=== PATIENT | female | born 1955 | race Caucasian/White ===

== ENCOUNTER → 2019-06-17 | Day surgery (SDC) | payer OTHER ==
[2019-06-13 13:08] LABS: BASOPHILS # (AUTO) 0.1 (0.0-0.1); BASOPHILS % 0.4 % (0.0-1.0); EOSINOPHILS # (AUTO) 0.8 (0.0-0.4); EOSINOPHILS % 6.1 % (0.0-6.0); HEMATOCRIT 40.1 % (34.2-44.1); HEMOGLOBIN 12.5 g/dL (12.0-16.0); LYMPHOCYTES # (AUTO) 2.7 (1.0-3.2); LYMPHOCYTES % 22.3 % (18.0-39.1); MEAN CORPUSCULAR HGB CONC 31.2 g/dL (31-35); MEAN CORPUSCULAR VOLUME 83.5 fL (81-99); MONOCYTES # (AUTO) 0.5 (0.2-0.8); MONOCYTES % 4.2 % (4.4-11.3); NEUTROPHILS # (AUTO) 8.1 (2.1-6.9); NEUTROPHILS % 66.6 % (38.7-80.0); PLATELET COUNT 437 x10e3/uL (140-360); RED CELL DISTRIBUTION WIDTH 14.6 % (11.7-14.4)
[2019-06-13 13:19] LABS: INR 0.92; PROTHROMBIN TIME 12.9 seconds (11.9-14.5)
[2019-06-13 13:26] LABS: ALBUMIN 3.7 g/dL (3.5-5.0); ALBUMIN/GLOBULIN RATIO 0.9 (0.8-2.0); ANION GAP 16.2 mmol/L (8-16); CALCIUM 10.5 mg/dL (8.4-10.2); CREATININE, SERUM 1.25 mg/dL (0.57-1.11); POTASSIUM 4.2 mmol/L (3.5-5.1)
[~2019-06-17] VITALS: Ht 167.6 cm; Wt 94.3 kg
[~2019-06-17] MED LIST: ADVAIR 250-501 EACH INH; ALPRAZOLAM 0.5 MG TAB ONE; AMIODARONE HCL200 MG PO; CARDURA1 MG PO; CARVEDILOL3.125 MG PO; CEFTIN500 MG PO; DIPHENHYDRAMINE HCL 25 MG CAP ONE; DUONEB 0.5 MG-33 ML INH; FENOFIBRATE160 MG PO; FENTANYL CITRATE/PF 100MCG/2 ML INJ ONE; GABAPENTIN300 MG PO; GEMFIBROZIL600 MG PO; GLIMEPIRIDE2 MG PO; HEPARIN SOD/SOD CHLORIDE 2,000 ML ONE; HUMALOG100 UNITS/ SC; HYDRALAZINE HCL25 MG PO; HYDROCHLOROTHIA25 MG PO; JANUVIA100 MG PO; LANTUS100 UNITS/ SC; LEVAQUIN500 MG PO; LIDOCAINE HCL 2% LOCAL 20 ML VIAL ONE; LISINOPRIL10 MG PO; LOSARTAN POTASS25 MG PO; METFORMIN HCL500 MG PO; MICROBID PO; MIDAZOLAM HCL 2 MG/2 ML VIAL ONE; MUCINEX600 MG PO; NICOTINE PATCH1 EAC4 EXT; NORCO 10-325 T1 EACH PO; NORVASC10 MG PO; PREDNISONE10 MG PO; PREDNISONE5 G1 PO; PROAIR HFA INH8.5 GM INH; SIMVASTATIN20 MG PO; SODIUM CHLORIDE 0.9% 1000ML 1,000 ML ONE; SOMA350 MG PO; SYMBICORT 80-10.2 GM INH; TESSALON PERLE100 MG PO; TRADJENTA5 MG PO; VERAPAMIL HCL 2.5 MG/ML 2 ML VIAL ONE; ZOFRAN ODT4 MG SL
--- OUTSIDE RECORDS SUMMARY | 2019-06-17 11:04 | XMS REPORT ---
Author Author [facility] Address Unknown Phone Unavailable Care Team Providers Care Hand Glove Cleaner Name Role Phone Unavailable Unavailable Payers Payer Name Policy Type Policy Number Effective Date Expiration Date Problems This patient has no known problems. Allergies, Adverse Reactions, Alerts Allergy Name Allergy Type Status Severity Reaction(s) Onset Date Inactive Date Treating Clinician Comments No Known Allergies DA Active U 2016-12-22 00:00:00 Medications This patient has no known medications. Results Test Description Test Time Test Comments Text Results Atomic Results Result Comments - XR L-SPINE 2/3 VIEWS 2019-05-28 13:25:00 Name: BETO LEMA [facility] : 1955 Age/S:64 /F [address] [facility] Unit#:[id number] Loc: [place] [address] Phys: Deni Ruelas MD Dis Date: PHONE #: [phone] Status: REG ER FAX #: [phone] Exam Date: 05/28/2019 Reason: low back pain EXAMS: CPT CODE: [id number] XR L-SPINE 2/3 VIEWS 00094 HISTORY: Low back pain. COMPARISON: X-ray from May 17, 2017. Lumbar spine series, 3 views: No acute fracture or dislocation. Vertebral body heights are maintained. Marked loss of disc space at L2-L3 level. Anterior marginal osteophytes throughout the lumbar spine. SI joints are preserved. Facet arthropathy at L4-L5 and L5-S1 level. Endplate sclerosis at L2-L3 level. Postop changes in the left epigastric location. IMPRESSION: No acute fracture or dislocation. Vertebral body heights are maintained. at 2927 Reported and signed by: Pablo Herrera M.D. CC: Deni Ruelas MD; Dr. Cooper Chandler [facility] nologist: Cristiana Diaz [facility] Trnutrpt Data: 05/28/2019 (7779) [email or web address] Orig Print D/T: S: 05/28/2019 (2910) PAGE 1 Signed Report GASTRIC,BIOPSY 2018-05-08 17:33:00 RUN DATE: 05/08/18 [facility] PAGE 1 RUN TIME: 1733 Specimen Inquiry RUN USER: INTERFACE PATIENT: BETO LEMA LOC: [id number] U #: [id number] AGE/SX: 63/F ROOM: RE05/07/18REG DR: Boyd Funes MD : 57 BED: DIS: STATUS: [facility] TLOC: SPEC #: [id number] RECD: 05/07/18 STATUS: TOMMIE POTTS #: [id number] MARCELO: 05/07/[address] [facility] [address]: Boyd Funes MD ENTERED: 05/07/18 SP TYPE: GASTRIC BX OTHR DR: Allison Chandler MD ORDERED: GROSS COPIES TO: Boyd Funes MD [address] [place] [address] Allison Chandler MD [address] [place] [address] [phone] PROCEDURES: GROSS (05/08/18-141) TISSUES: 1. ANTRUM - BX 2. CECUM, NOS - BX CLINICAL HISTORY COLLECTION DATE: 05/07/18 COLON CANCER SCREENING, DYSPHAGIA, ABDOMINAL PAIN, NAUSEA, VOMITING POST-OP DIAGNOSIS: DIVERTICULOSIS, INTERNAL HEMORRHOIDS, MILD DISTAL ESOPHAGITIS, GASTRITIS, S/P VERTICAL GASTRIC STAPLING, GASTRIC STAPLING SITE DILATED WITH 17 SAVORY OVERWIRE FINAL DIAGNOSIS Stomach, antrum, biopsy: CHRONIC GASTRITIS WITH FOCAL ACTIVITY CONTROLLED GIEMSA STAIN NEGATIVE FOR HELICOBACTER ORGANISMS NEGATIVE FOR MALIGNANCY Cecal appendiceal orifice, biopsy: COLONIC MUCOSA WITH MODERATE TO SEVERE CHRONIC INFLAMMATION IN THE LAMINA PROPRIA NO SIGNIFICANT INCREASE IN ACUTE INFLAMMATION NEGATIVE FOR MALIGNANCY [place]/sm D (8) [phone], 42204 CONTINUED ON NEXT PAGE -------RUN DATE: 05/08/18 [employer] [facility] PAGE 2 RUN TIME: 1733 Specimen Inquiry RUN USER: INTERFACE SPEC #: [id number] PATIENT: BETO LEMA #[id number] (Continued) MACROSCOPIC The first specimen is received in formalin, labeled with the patient's name, identified as "antrum", and consists of pink-wong biopsy tissue measuring 0.35 cm in aggregate, submitted as (1) for H E and Giemsa stains. The second specimen is received in formalin, labeled with the patient's name, identified as "cecal appendiceal orifice", and consists of wong biopsy tissue measuring 0.3 cm in aggregate, submitted as (2). GROSS PERFORMED AT [facility] [address] [place] [address] [phone])[phone] MICROSCOPIC MICROSCOPIC PERFORMED AT [facility] All of the stains, including any controls performed, stain appropriately. [facility] [address] [place] [address] (p)[phone] PERFORMING SITE Diagnosis performed at: [facility] [address] [place] [id number] --- Signed SIGNATURE ON FILE Renetta Ibrahim 05/08/18 9645 END OF REPORT
[2019-06-17 16:30] VITALS: BP 133/88
[2019-06-17 16:45] VITALS: BP 138/83
[2019-06-17 17:00] VITALS: BP 139/89
[2019-06-17 17:15] VITALS: BP 139/89
[2019-06-17 17:30] VITALS: BP 140/75
--- NOTE | 2019-06-17 17:38 | NUR ---
Removed 4ml of air removed from right wrist TR band. Right wrist site appears to be without signs or symptoms of active bleeding. Patient appears to have tolerated well. No distress noted at this time.
--- NOTE | 2019-06-17 17:53 | NUR ---
Removed last 2ml of air from right wrist TR band. Right wrist TR band removed and dressing placed per unit protocol. Dressing to right wrist is clean,dry, and intact.
[2019-06-17 18:00] VITALS: BP 134/79
--- NOTE | 2019-06-17 18:10 | NUR ---
IV removed from left antecubital. Dressing to left antecubital placed per unit protocol. Dressingt to left antecubital is clean,dry, and intact. Dressing to right wrist is clean,dry, and intact at this time. No distress noted at this time. Patient waiting for family to be discharged home.
--- NOTE | 2019-06-17 18:27 | NUR ---
Dressing to left antecubital is clean,dry, and intact. Dressing to right wrist is clean,dry, and intact. 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 Patient discharged with belongings. No distress noted at time of discharge.
--- NOTE | 2019-06-17 18:39 | Operative Report ---
DATE OF PROCEDURE: 06/17/2019 SURGEON: Samuel Treviño MD INDICATION: Coronary artery disease. Preoperative cardiac evaluation. PROCEDURES PERFORMED: 1. Left heart catheterization, selective coronary angiography. 2. Deployment of right wrist TR band. COMPLICATIONS: None. RECOMMENDATIONS: Cardiac cleared for knee surgery followed by elective circumflex stent placement. DESCRIPTION OF PROCEDURE: Access obtained in the right radial artery. A 5-[place] sheath was placed. Coronary angiography demonstrated patent left main left anterior descending artery, mild 20% to 30% stenosis. Circumflex stent was widely patent, distal stent 70% stenosis, 2.5 mm vessel, right coronary artery calcified mid 50% to 70% stenosis. Excellent flow. No intervention at this point was deemed necessary. LV end-diastolic pressure of 10, no gradient across the aortic valve pullback. Right wrist TR band applied. The patient discharged home the same day. Samuel Treviño MD KSB/MODL /[id number]
== END | disposition home or self-care (01) ==
LOC: CATH LAB 11:02
PROVIDERS: ATTEND Internal Medicine Interventional Cardiology
DX: I25.10 Atherosclerotic heart disease of native coronary artery without angina pectoris (principal); I10 Essential (primary) hypertension; E78.5 Hyperlipidemia, unspecified; Z72.0 Tobacco use; E11.9 Type 2 diabetes mellitus without complications; J44.9 Chronic obstructive pulmonary disease, unspecified; Z01.812 Encounter for preprocedural laboratory examination; Z79.84 Long term (current) use of oral hypoglycemic drugs; Z68.33 Body mass index [BMI] 33.0-33.9, adult; Z82.49 Family history of ischemic heart disease and other diseases of the circulatory system
CPT/HCPCS: 36415; 80053; 85025; 85610; 93458; C1769; C1887; J2001; J2250; J3010; J7030; 99152

== ENCOUNTER 2019-06-24 21:15 | Inpatient (IN) | payer OTHER ==
[~2019-06-24] VITALS: Ht 167.6 cm; Wt 94.3 kg
[~2019-06-24 21:15] MED LIST changes: -ALPRAZOLAM 0.5 MG TAB ONE; -DIPHENHYDRAMINE HCL 25 MG CAP ONE; -FENTANYL CITRATE/PF 100MCG/2 ML INJ ONE; -HEPARIN SOD/SOD CHLORIDE 2,000 ML ONE; -LIDOCAINE HCL 2% LOCAL 20 ML VIAL ONE; -MIDAZOLAM HCL 2 MG/2 ML VIAL ONE; -SODIUM CHLORIDE 0.9% 1000ML 1,000 ML ONE; -VERAPAMIL HCL 2.5 MG/ML 2 ML VIAL ONE
[2019-06-24] MEDS ORDERED: SODIUM CHLORIDE 0.9% 1000ML 1,000 ML IV ONE ×2 (21:30→23:15)
[2019-06-24] MEDS ORDERED: CEFEPIME 2 GM/NS 0.9% 100 ML 100 ML IV ONE (21:30)
[2019-06-24] MEDS ORDERED: ACETAMINOPHEN 325 MG TAB PO ONE (21:45)
[2019-06-24 21:55] LABS: BASOPHILS # (AUTO) 0.1 (0.0-0.1); BASOPHILS % 0.3 % (0.0-1.0); EOSINOPHILS % 0.1 % (0.0-6.0); HEMATOCRIT 38.1 % (34.2-44.1); HEMOGLOBIN 12.1 g/dL (12.0-16.0); LYMPHOCYTES % 5.5 % (18.0-39.1); MEAN CORPUSCULAR HEMOGLOBIN 26.1 pg (28-32); MEAN CORPUSCULAR HGB CONC 31.8 g/dL (31-35); MEAN CORPUSCULAR VOLUME 82.1 fL (81-99); MONOCYTES # (AUTO) 0.6 (0.2-0.8); NEUTROPHILS % 90.3 % (38.7-80.0); PLATELET COUNT 354 x10e3/uL (140-360); RED BLOOD COUNT 4.64 x10e6/uL (3.6-5.1)
[2019-06-24 22:03] LABS: BILIRUBIN,URINE NEGATIVE (NEGATIVE); CLARITY,URINE SL CLOUDY (CLEAR); COLOR,URINE YELLOW (YELLOW); KETONES,URINE NEGATIVE (NEGATIVE); LEUKOCYTE ESTERASE ,URINE MODERATE (NEGATIVE); NITRITE,URINE POSITIVE (NEGATIVE); PROTEIN,URINE DIPSTICK 2+ (NEGATIVE); URINE UROBILINOGEN 0.2 mg/dL (0.2 - 1)
[2019-06-24 22:04] LABS: INR 1.01; PROTHROMBIN TIME 13.8 seconds (11.9-14.5)
[2019-06-24 22:05] LABS: PARTIAL THROMBOPLASTIN TIME 41.1 seconds (23.8-35.5)
[2019-06-24] MEDS: ONDANSETRON HCL INJ 2MG/ML 2ML 2 MG/ML VIAL IV NR (22:10)
[2019-06-24 22:14] LABS: ALBUMIN 3.5 g/dL (3.5-5.0); ALBUMIN/GLOBULIN RATIO 0.9 (0.8-2.0); ANION GAP 14.6 mmol/L (8-16); CALCIUM 9.5 mg/dL (8.4-10.2); CREATININE, SERUM 1.21 mg/dL (0.57-1.11); POTASSIUM 3.6 mmol/L (3.5-5.1)
[2019-06-24 22:17] LABS: BACTERIA,URINE MANY /HPF
[2019-06-24 22:21] LABS: CREATINE KINASE MB 0.9 ng/mL (0-5.0)
--- NOTE | 2019-06-24 22:59 | Diagnostic Imaging Report ---
EXAMINATION: CHEST SINGLE (PORTABLE) INDICATION: Fever. COMPARISON: Chest radiograph 05/31/2014. FINDINGS: TUBES and LINES: None. LUNGS: Lungs are moderately inflated. Mild patchy left basilar opacity, likely atelectasis. There is no evidence of lobar pneumonia or pulmonary edema. PLEURA: No pleural effusion or pneumothorax. HEART AND MEDIASTINUM: The cardiomediastinal silhouette is unremarkable. BONES AND SOFT TISSUES: No acute osseous abnormality. UPPER ABDOMEN: No free air under the diaphragm. IMPRESSION: No acute radiographic abnormality. Signed by: Dr. Joaquin Dale MD on 06/24/2019 10:55 PM
[2019-06-24] MEDS ORDERED: DEXTROSE 50% SYRINGE 50 ML IV PRN (23:30)
[2019-06-24] MEDS ORDERED: SODIUM CHLORIDE FLUSH 10 ML SYR INJ PRN (23:30)
[2019-06-24] MEDS: SODIUM CHLORIDE 0.9% 1000ML 1,000 ML IV SCH (23:34)
[2019-06-24] MEDS: CEFEPIME 2 GM/NS 0.9% 100 ML 100 ML IV SCH (23:34)
[2019-06-25] VITALS (9 sets, daily range): BP systolic 110–163; BP diastolic 59–97
[2019-06-25] MEDS: ONDANSETRON HCL INJ 2MG/ML 2ML 2 MG/ML VIAL IV PRN ×2 (02:30→14:00)
[2019-06-25] MEDS: ONDANSETRON HCL INJ 2MG/ML 2ML 2 MG/ML VIAL IV NR (03:10)
[2019-06-25] MEDS: ACETAMINOPHEN 325 MG TAB PO PRN ×2 (05:11→14:37)
--- NOTE | 2019-06-25 06:44 | NUR ---
CALLED AND SPOKE WITH DR STILL, MADE HIM AWARE THAT PATIENT IS CONSULTED TO HIM. HE STATED HE WILL COME LATER.
[2019-06-25] MEDS: BUDESONIDE/FORMOTEROL FUMARATE 80/4.5MCG 6.9 GM INH AEROSOL IH SCH ×3 (07:05→19:00)
[2019-06-25] MEDS: INSULIN REGULAR, HUMAN 100 UNIT/1 ML 3ML VIAL SQ SCH ×4 (07:30→21:00)
[2019-06-25] MEDS ORDERED: ASPIRIN 81 MG CHEW TAB PO ONE (08:15)
[2019-06-25 08:28] LABS: BASOPHILS # (AUTO) 0.1 (0.0-0.1); BASOPHILS % 0.4 % (0.0-1.0); EOSINOPHILS % 0.1 % (0.0-6.0); HEMOGLOBIN 10.9 g/dL (12.0-16.0); LYMPHOCYTES # (AUTO) 1.6 (1.0-3.2); LYMPHOCYTES % 9.8 % (18.0-39.1); MEAN CORPUSCULAR HEMOGLOBIN 25.9 pg (28-32); MEAN CORPUSCULAR HGB CONC 31.1 g/dL (31-35); MEAN CORPUSCULAR VOLUME 83.1 fL (81-99); MONOCYTES % 5.9 % (4.4-11.3); NEUTROPHILS # (AUTO) 13.8 (2.1-6.9); NEUTROPHILS % 83.2 % (38.7-80.0); PLATELET COUNT 313 x10e3/uL (140-360); RED BLOOD COUNT 4.21 x10e6/uL (3.6-5.1); RED CELL DISTRIBUTION WIDTH 15.1 % (11.7-14.4)
[2019-06-25 08:58] LABS: ALBUMIN 3.1 g/dL (3.5-5.0); ALBUMIN/GLOBULIN RATIO 0.9 (0.8-2.0); ANION GAP 11.6 mmol/L (8-16); CALCIUM 8.7 mg/dL (8.4-10.2); CREATINE KINASE MB 0.9 ng/mL (0-5.0); CREATININE, SERUM 1.13 mg/dL (0.57-1.11); POTASSIUM 3.6 mmol/L (3.5-5.1)
[2019-06-25] MEDS: CARVEDILOL 3.125 MG TAB PO SCH ×2 (09:14→16:43)
[2019-06-25] MEDS: SODIUM CHLORIDE 0.9% 1000ML 1,000 ML IV SCH ×2 (09:14→16:03)
[2019-06-25] MEDS: HYDROCODONE/APAP 10MG-325MG TAB PO SCH ×4 (09:14→22:15)
[2019-06-25] MEDS: CEFEPIME 2 GM/NS 0.9% 100 ML 100 ML IV SCH ×2 (11:30→23:10)
[2019-06-25] MEDS: ALBUTEROL/IPRATROPIUM 3 ML NEB NEB PRN ×2 (14:50→22:20)
--- NOTE | 2019-06-25 19:47 | Diagnostic Imaging Report ---
CT Abdomen And Pelvis with Intravenous Contrast INDICATION: ^r/o polynephritis ^[id number] ^1850 TECHNIQUE: Thin collimation axial images obtained from the diaphragm to the level of the pubic symphysis following the uneventful administration of 100 cc of low osmolar, nonionic intravenous contrast. Dose reduction techniques used: Automated exposure control, adjustment of the mAs and/or kVp according to patient size, standardized low-dose protocol, and/or iterative reconstruction technique. RADIATION DOSE: Total DLP: 840.19 mGy*cm Estimated effective dose: (DLP x 0.015 x size factor) mSv CTDIvol has been reviewed. It is below the limits set by the Radiation Protocol Committee (RPC). COMPARISON: None. ABDOMEN FINDINGS: Lung Bases: Groundglass nodule in the posterior basal segment of the left lower lobe measures 8 mm. Calcified granuloma in the posterior basal segment of the left lower lobe measures 7 mm. There is bibasilar atelectasis. Coronary artery calcifications are present. The heart is normal in size. Liver: Steatosis with lobulated hepatic contours. The right lobe measures 24 cm in length. No evidence for mass. Gallbladder: Absent. No biliary ductal dilatation. Pancreas: Normal attenuation without mass or ductal dilatation. Spleen: Normal in size. No evidence of mass. Adrenal Glands: The right adrenal gland is normal. Nodule in the left adrenal gland measures 2.3 x 2.0 cm. Kidneys: Right: Normal enhancement. Lobulated renal contours.. Several subcentimeter cysts in the lateral interpolar cortex are suggestive of cysts. There is mild perinephric inflammation extending to the mid ureter. No hydronephrosis. Left: Normal enhancement. Lobulated renal contours. No cortical mass. No hydronephrosis. Lymph Nodes: An aortocaval lymph node measures 11 mm.. Aorta: Normal in diameter and diffusely calcified. PELVIS FINDINGS: Bowel: Stomach: Postoperative changes of the proximal stomach. The stomach is not dilated. Small Bowel: Normal in caliber with normal wall thickness. Large Bowel: A knuckle of transverse colon herniates through the linea alba. The aperture is 3.8 cm. The large bowel is normal in diameter with normal wall thickness. There are a few diverticula in the large bowel and particularly the sigmoid colon without associated inflammation. Appendix: Not visualized. Bladder: Normal. Ureters: No ureteral dilatation. No ureteral calculus. The uterus is absent. No adnexal mass. Peritoneum/retroperitoneum: No loculated fluid collection. Bones: Degenerative changes of the spine. No compression deformities or listhesis. No focal osseous lesions. IMPRESSION: 1. Nonspecific right perinephric inflammation. This may be secondary to pyelonephritis. No evidence of renal abscess. A prominent aortocaval lymph node may be reactive. 2. Steatosis and hepatomegaly. 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 3. Left adrenal nodule, likely an adenoma. 4. Large bowel containing abdominal wall hernia. No bowel obstruction. Diverticulosis coli. 5. Status post hysterectomy and cholecystectomy. Nonvisualization of the appendix. Postoperative changes of the stomach. 6. Noncalcified nodule in the left lower lobe. Recommend annual surveillance with CT of the chest to confirm stability. Signed by: Dr. Aliza Chatterjee MD on 06/25/2019 7:43 PM
[2019-06-25] MEDS ORDERED: SODIUM CHLORIDE 0.9% 50ML 50 ML ONE (20:35)
[2019-06-25] MEDS ORDERED: IOPAMIDOL 370 MG/ML 200 ML INFUS..BTL INJ ONE (20:35)
--- NOTE | 2019-06-25 20:47 | NUR ---
Read results of CT scan to Dr. Slaughter at 2039. No new orders received.
[2019-06-25] MEDS: SIMVASTATIN 20 MG TAB PO SCH (21:26)
[2019-06-26] VITALS (7 sets, daily range): BP systolic 128–154; BP diastolic 78–98
--- NOTE | 2019-06-26 00:54 | Consultation ---
DATE OF CONSULTATION: REASON FOR CONSULTATION: UTI, resistant to oral antibiotic. HISTORY OF PRESENT ILLNESS: This patient, who is a 64-year-old white female, who has been having problem with recurrent UTI for years, but last 3-4 months since she had several of these UTI and had been taking several antibiotic including Cipro and Levaquin. The patient for the last few days, having fever, chills, suprapubic pain, urgency, frequency, not feeling well, so she came to the hospital. I was contacted by the ER physician. I also discussed the case with Dr. Allison Chandler. When she first came, her white count was 18.77, hemoglobin 12.2, her sodium 129, potassium 3.6, creatinine 1.13. Her glucose was 185. Liver enzyme within normal limit. So, the patient was admitted. She was started on antibiotic and I am asked to see her. HOME MEDICATIONS: She is on carvedilol or Coreg, DuoNeb, Tylenol, cefepime, insulin, and Zocor. PAST MEDICAL HISTORY: Significant for obesity, recurrent UTI recently. PAST SURGICAL HISTORY: She denies. ALLERGIES: NKA. SOCIAL HISTORY: She does smoke. Drink occasionally. No drug abuse. FAMILY HISTORY: Noncontributory. REVIEW OF SYSTEMS: GENERAL: She is just not feeling well in general. HEENT: There is no headache, visual changes, or hearing changes. GI: There is some nausea, but no vomiting. No diarrhea. : She has urgency and frequency. She has been having fever for the last few days. PHYSICAL EXAMINATION: GENERAL: She is currently alert, oriented, does not seem to be in acute distress. VITAL SIGNS: Stable, currently afebrile. HEENT: She is not icteric. NECK: Supple. No JVD. No carotid bruit. No thyromegaly. CHEST: Clear bilateral. HEART: S1-S2. No murmur. ABDOMEN: Soft. Bowel sounds present. No tenderness. EXTREMITIES: No edema. SKIN: No rash. IMPRESSION: 1. Recurrent urinary tract infection. 2. Pyelonephritis. RECOMMENDATION: Agree with blood cultures, urine cultures. Agree with cefepime. Obtain CT of the pelvis. We will get CT of abdomen and pelvis. We will consult with Urology. Recheck CBC. Recheck Chem panel. Further recommendations pending on Urology. MD KATY Rangel /[id number]
[2019-06-26] MEDS: ACETAMINOPHEN 325 MG TAB PO PRN (03:52)
[2019-06-26] MEDS: ONDANSETRON HCL INJ 2MG/ML 2ML 2 MG/ML VIAL IV PRN (04:11)
[2019-06-26] MEDS: SODIUM CHLORIDE 0.9% 1000ML 1,000 ML IV SCH ×2 (04:11→13:10)
[2019-06-26 05:17] LABS: BASOPHILS # (AUTO) 0.1 (0.0-0.1); BASOPHILS % 0.6 % (0.0-1.0); EOSINOPHILS # (AUTO) 0.1 (0.0-0.4); EOSINOPHILS % 1.3 % (0.0-6.0); HEMATOCRIT 31.3 % (34.2-44.1); HEMOGLOBIN 9.8 g/dL (12.0-16.0); LYMPHOCYTES # (AUTO) 2.5 (1.0-3.2); LYMPHOCYTES % 24.6 % (18.0-39.1); MEAN CORPUSCULAR HEMOGLOBIN 25.9 pg (28-32); MEAN CORPUSCULAR HGB CONC 31.3 g/dL (31-35); MEAN CORPUSCULAR VOLUME 82.6 fL (81-99); MONOCYTES # (AUTO) 0.9 (0.2-0.8); MONOCYTES % 8.3 % (4.4-11.3); NEUTROPHILS # (AUTO) 6.7 (2.1-6.9); NEUTROPHILS % 64.9 % (38.7-80.0); PLATELET COUNT 267 x10e3/uL (140-360); RED BLOOD COUNT 3.79 x10e6/uL (3.6-5.1); RED CELL DISTRIBUTION WIDTH 15.2 % (11.7-14.4)
[2019-06-26 05:43] LABS: ALBUMIN 2.7 g/dL (3.5-5.0); ALBUMIN/GLOBULIN RATIO 0.8 (0.8-2.0); ANION GAP 14.7 mmol/L (8-16); CALCIUM 8.5 mg/dL (8.4-10.2); CREATININE, SERUM 0.97 mg/dL (0.57-1.11); POTASSIUM 3.7 mmol/L (3.5-5.1)
--- NOTE | 2019-06-26 05:59 | History and Physical ---
CHIEF COMPLAINT: Fever, weakness, and dysuria. HISTORY OF PRESENT ILLNESS: This is a 64-year-old female with a past medical history of diabetes, hypertension, mild renal insufficiency, COPD history of pneumonia until patient came to my office with a cough and bronchitis and UTI, started on p.o. Levaquin. The patient went home, but still fever persist and the patient was more weak, so she came to the emergency room. No nausea. No vomiting. No diarrhea. No constipation. No leg pain. No leg swelling. No chest pain. Has some mild shortness of breath and wheezing. No headache. No dizziness. PAST MEDICAL HISTORY: 1. COPD. 2. Hyperlipidemia. 3. Hypertension. 4. Diabetes mellitus type 2. PAST SURGICAL HISTORY: Cholecystectomy and hysterectomy. SOCIAL HISTORY: The patient is single. Smokes half to one pack cigarettes per day. Denies alcohol use. Denies illicit drug use. MEDICATIONS: List attached. ALLERGIES: NO KNOWN DRUG ALLERGIES. REVIEW OF SYSTEMS: CONSTITUTIONAL: Denies fatigue or weakness. HEENT: No diplopia. No blurring of vision. CARDIOPULMONARY: No chest pain. Has some shortness of breath and cough. ALIMENTARY SYSTEM: No nausea, no vomiting. GENITOURINARY SYSTEM: Has some dysuria. No hematuria. MUSCULOSKELETAL: Has some joint pain. CENTRAL NERVOUS SYSTEM: No focal weakness. No seizure. PHYSICAL EXAMINATION: GENERAL: This is a 64-year-old female who is alert and oriented x3, in no gross distress. VITAL SIGNS: Temperature 100.7, pulse 107, respiratory rate 18, blood pressure 141/75. HEENT: Head atraumatic and normocephalic. Pupils bilaterally equal to light. Extraocular muscles intact. NECK: Supple. No JVD. No carotid bruit. LUNGS: Clear to auscultation bilaterally. No added sounds. HEART: S1, S2. Regular rate and rhythm. No S3, S4 or murmur. ABDOMEN: Soft, nontender. No guarding or rigidity. EXTREMITIES: No edema. Peripheral pulses +1. SURGICAL SALES REPRESENTATIVE: Grossly nonfocal. LABORATORY DATA: Sodium 133, potassium 3.6. BUN , creatinine 1.21. Lactic acid 3.3, sugar 253. LFT, AST, ALT normal. . Cardiac enzyme is negative. White count 18.77, hemoglobin 12 and hematocrit 38.1, platelets 354. Urine is RBC positive, WBC positive, nitrite positive leukocyte esterase positive. ASSESSMENT: 1. Urosepsis. 2. Bronchitis. Chest x-ray negative. 3. Hypertension. 4. Diabetes type 2. 5. Hyperlipidemia. 6. Anemia. 7. Severe hyponatremia. PLAN: Admit patient to telemetry. Cardiac enzymes q.6h x2, neb treatment q.6 hours, cefepime 2 g IV q.12 hours. Continue home medicine. Case discussed with the patient. . IV fluids, normal saline at 75 mL/h. Lab; CBC, BMP tomorrow, we will watch sodium level. MD JUAQUIN Paul/CHAKA /[id number]
[2019-06-26] MEDS: INSULIN REGULAR, HUMAN 100 UNIT/1 ML 3ML VIAL SQ SCH ×4 (07:24→20:56)
[2019-06-26] MEDS: HYDROCODONE/APAP 10MG-325MG TAB PO SCH ×4 (08:41→22:59)
[2019-06-26] MEDS: CARVEDILOL 3.125 MG TAB PO SCH ×2 (08:41→17:02)
[2019-06-26] MEDS: CEFEPIME 2 GM/NS 0.9% 100 ML 100 ML IV SCH ×2 (13:10→23:48)
[2019-06-26] MEDS: BUDESONIDE/FORMOTEROL FUMARATE 80/4.5MCG 6.9 GM INH AEROSOL IH SCH ×2 (13:25→19:40)
[2019-06-26] MEDS: ALBUTEROL/IPRATROPIUM 3 ML NEB NEB PRN ×2 (13:25→19:40)
[2019-06-26] MEDS: GLIMEPIRIDE 2 MG TAB PO SCH (17:01)
[2019-06-26] MEDS: HYDRALAZINE HCL 25 MG TAB PO SCH (17:02)
[2019-06-26] MEDS: SIMVASTATIN 20 MG TAB PO SCH (21:00)
[2019-06-27] VITALS (8 sets, daily range): BP systolic 115–153; BP diastolic 70–92
[2019-06-27] MEDS: SODIUM CHLORIDE 0.9% 1000ML 1,000 ML IV SCH ×2 (01:12→17:38)
[2019-06-27 05:22] LABS: ANION GAP 12.8 mmol/L (8-16); BLOOD UREA NITROGEN 7 mg/dL (7-26); BUN/CREATININE RATIO 8 (6-25); CALCIUM 8.9 mg/dL (8.4-10.2); CARBON DIOXIDE 26 mmol/L (22-29); CHLORIDE 98 mmol/L (98-107); EST GLOMERULAR FILTRATION RATE > 60 ML/MIN (60-); GLUCOSE 149 mg/dL (74-118); POTASSIUM 3.8 mmol/L (3.5-5.1); SODIUM 133 mmol/L (136-145)
[2019-06-27] MEDS: ALBUTEROL/IPRATROPIUM 3 ML NEB NEB PRN (07:25)
[2019-06-27] MEDS: INSULIN REGULAR, HUMAN 100 UNIT/1 ML 3ML VIAL SQ SCH ×4 (07:30→20:11)
[2019-06-27] MEDS: GLIMEPIRIDE 2 MG TAB PO SCH ×2 (08:29→17:30)
[2019-06-27] MEDS: CARVEDILOL 3.125 MG TAB PO SCH ×2 (08:30→17:40)
[2019-06-27] MEDS: HYDROCODONE/APAP 10MG-325MG TAB PO SCH ×4 (08:31→21:11)
[2019-06-27] MEDS: SITAGLIPTIN 100 MG TAB PO SCH (08:31)
[2019-06-27] MEDS: HYDRALAZINE HCL 25 MG TAB PO SCH ×2 (08:32→17:40)
[2019-06-27] MEDS: LOSARTAN POTASSIUM 25 MG TAB PO SCH (08:50)
[2019-06-27] MEDS: AMLODIPINE BESYLATE 10 MG TAB PO SCH (08:51)
[2019-06-27] MEDS: BUDESONIDE/FORMOTEROL FUMARATE 80/4.5MCG 6.9 GM INH AEROSOL IH SCH ×2 (10:59→21:05)
[2019-06-27] MEDS: CEFEPIME 2 GM/NS 0.9% 100 ML 100 ML IV SCH ×2 (11:39→23:10)
--- NOTE | 2019-06-27 14:03 | NUR ---
Pt transferred to room 115 after report called to Nancy URIAS. No new complaints or concerns.
--- NOTE | 2019-06-27 14:42 | Diagnostic Imaging Report ---
EXAM: CT Chest WITHOUT intravenous contrast 06/27/2019 10:23 AM INDICATION: Shortness of breath COMPARISON: CT abdomen and pelvis of 06/25/2019, chest radiograph of 06/24/2019 TECHNIQUE: Chest was scanned utilizing a multidetector helical scanner from the lung apex through the level of the adrenal glands without administration of IV contrast. Coronal and sagittal reformations were obtained. Routine protocol was performed. IV CONTRAST: None RADIATION DOSE: Total DLP: 506.9 mGy*cm. Dose modulation, iterative reconstruction, and/or weight based adjustment of the mA/kV was utilized to reduce the radiation dose to as low as reasonably achievable. COMPLICATIONS: None FINDINGS: LINES/ TUBES: None. LUNGS AND AIRWAYS: Small amount of dependent mucus in the proximal thoracic trachea. The central airways are otherwise patent. Mild bibasilar dependent subsegmental atelectasis. No focal consolidation. No pulmonary edema. 5 mm right upper lobe pulmonary nodule (series 3 image 22), 5 mm right middle lobe nodule (series 3 image 34), 5 mm left lower lobe nodule (series 3 image 34) , 7 mm left lower lobe calcified granuloma. PLEURA: No pleural effusion. No pneumothorax. HEART AND MEDIASTINUM: The thyroid gland is normal. No supraclavicular, mediastinal, or hilar lymphadenopathy. The heart is not enlarged. No pericardial effusion. Diffuse atherosclerotic calcifications involve the coronary arteries, thoracic aorta and proximal great vessels. UPPER ABDOMEN: Limited images of the upper abdomen demonstrate diffuse hepatic steatosis and hepatomegaly. Scattered calcified granulomas throughout the spleen. Postoperative findings of prior gastric surgery. The adrenals and kidneys are not visualized. BONES: No acute osseous injury. No suspicious lytic or blastic lesions. Mild degenerative changes of the visualized spine. SOFT TISSUES: Unremarkable. IMPRESSION: No acute cardiopulmonary abnormality. Bilateral pulmonary nodules measuring up to 5 mm. If the patient is low risk, no routine follow-up is needed. If the patient is high risk, chest CT is optional at 12 months. Diffuse atherosclerotic calcifications including of the coronary arteries. Signed by: Salty Sepulveda MD on 06/27/2019 2:38 PM
--- NOTE | 2019-06-27 14:58 | Consultation ---
DATE OF CONSULTATION: 06/27/2019 Endocrine Consultation This is a patient of Dr. Allison Chandler. Thank you very much for referring this patient. HISTORY OF PRESENT ILLNESS: This is a 64-year-old white female, who was referred to me for evaluation of uncontrolled diabetes mellitus. The patient is a known diabetic for almost 15-20 years and takes a combination of the oral hypoglycemics. She takes glimepiride about 8 mg twice a day, which is very significant high dose along with Januvia and metformin. The patient came to the hospital with history of urinary tract infection, urosepsis, and she was also found to have an adrenal adenoma. The patient is on several other medications presently. She is a chronic smoker. She has a history of COPD. She also is on albuterol, losartan for hypertension, Januvia 100 mg once daily, and glimepiride 4 mg twice daily. PHYSICAL EXAMINATION: GENERAL: Today, the patient is alert, awake, little bit apprehensive. She is moderately overweight. VITAL SIGNS: Her heart rate is around 78 and blood pressure is 130/80 mmHg. HEENT: Essentially unremarkable. CHEST: Bilateral vesicular breathing. She has bilateral bronchospasm and rales. CARDIAC: First and second heart sounds. There is no third or fourth heart sound. There is ejection systolic murmur grade 2/6. The patient has evidence of diabetic sensory neuropathy in both lower extremities. DIAGNOSTIC DATA: On the CT scan of the abdomen, the patient was also found to have an adrenal adenoma. CLINICAL IMPRESSION: 1. Diabetes mellitus type 2, uncontrolled with complications. 2. Recurrent pyelonephritis. 3. Adrenal adenoma. 4. Chronic smoker. 5. Urosepsis. PLAN: At this time is to do a 24-hour urine VMA, metanephrines. We will also do a glycohemoglobin and thyroid function tests. Thanks again for referring this patient. I will be following this patient with you. MD MATEO Monroe/CHAKA /[id number] PAULINA
--- NOTE | 2019-06-27 15:03 | NUR ---
MD BERKOWITZ INTO SEE PT, DISCUSSED POC, 24 HOUR URINE STARTED PER MD ORDER, PT EDUCATED AND VERBALIZED UNDERSTANDING
[2019-06-27 15:06] LABS: FREE T4 (FREE THYROXINE) 1.07 ng/dL (0.8-1.8); THYROID STIMULATING HORMONE 1.868 uIU/mL (0.350-4.940)
--- NOTE | 2019-06-27 17:23 | Consultation ---
DATE OF CONSULTATION: Pulmonary Consultation REASON FOR CONSULT: Lung nodule. HISTORY OF PRESENT ILLNESS: Ms. Cha is a 64-year-old female. She has been a smoker for 50 years, one pack per day. She was admitted at this time under Dr. Chandler's service with fever, weakness, and dysuria. She is being treated with antibiotics. CT abdomen was done, which showed incidental finding of lung nodule and hence Pulmonary consultation was called. She reports shortness of breath, [id number] on short distances on exertion. It relieves with inhaler and rest. She denies any headaches, dizziness, vomiting, or nausea. REVIEW OF SYSTEMS: GENERAL: Denies any fever or chills. HEAD: Denies any head trauma. ENT: Denies any earache. CVS: Denies any chest pain. RESPIRATORY: As above. GI: Denies any nausea or vomiting. MUSCULOSKELETAL: Denies any arthralgias or myalgias. NEURO: Denies any focal weakness. The rest of the review of systems are negative except as in HPI. PAST MEDICAL HISTORY: COPD, hypertension, hyperlipidemia, diabetes. PAST SURGICAL HISTORY: Cholecystectomy and hysterectomy. FAMILY AND SOCIAL HISTORY: She has smoked one pack per day for 50 years. PHYSICAL EXAMINATION: VITAL SIGNS: Temperature 98.1, pulse of 98, blood pressure 153/92, respiratory rate of 18 to 20, O2 saturation 97%. HEENT: Head atraumatic, normocephalic. NECK: Supple. CHEST: No wheezing. No crackles. HEART: S1 and S2 audible. ABDOMEN: Soft. EXTREMITIES: No pedal edema. NEUROLOGIC: Awake and alert. LABORATORY DATA: Labs reviewed. ASSESSMENT: CT of the abdomen and pelvis reviewed the nodule is not visible clearly on the CT abdomen and pelvis film. ASSESSMENT/PLAN: Ms. Cha is a 64-year-old female, admitted with urinary tract infection, incidental finding of lung nodule. Plan, we will do CT chest without contrast and further recommendation after reviewing the CT chest without contrast. Currently not in any exacerbation for chronic obstructive pulmonary disease. Continue the patient on the Symbicort and nebulizer treatment. Thank you for this consult. MD ADALGISA Pinto/CHAKA /[id number]
--- NOTE | 2019-06-27 18:08 | NUR ---
MD MARTINEZ INTO SEE PT, DISCUSSED POC
--- NOTE | 2019-06-27 19:00 | NUR ---
RECEIVED PATIENT IN BEDSIDE REPORT. PATIENT SITTING IN BED AT THIS TIME, A&OX3, NO PAIN REPORTED. NO S&S OF DISTRESS NOTED. L FA 20G IV ASYMPTOMATIC, INTACT, AND PATENT, RUNNING NS @ 50ML/HR. BED LOCKED IN LOWEST POSITION, SIDE RAILS UPX2, CALL LIGHT IN REACH.
--- NOTE | 2019-06-27 20:05 | NUR ---
CHASTITY YEH, PATIENT REQUESTS TRAZODONE, WHICH WAS NOT PREVIOUSLY ENTERED IN Re5ult. AWAITING CALL BACK. Addendum: 06/27/19 at 2358 by Barbara Cartagena RN MD YEH RETURNED CALL AT THIS TIME, NEW ORDERS RECEIVED.
[2019-06-27] MEDS: SIMVASTATIN 20 MG TAB PO SCH (21:10)
[2019-06-28] VITALS (7 sets, daily range): BP systolic 134–157; BP diastolic 62–89
[2019-06-28] MEDS: TRAZODONE HCL 50 MG TAB PO PRN ×2 (00:13→21:08)
--- NOTE | 2019-06-28 00:54 | Consultation ---
DATE OF CONSULTATION: 06/27/2019 Urology consultation. REASON FOR CONSULTATION: Complicated urinary tract infection. HISTORY OF PRESENT ILLNESS: Stephanie Cha is a 64-year-old woman, who has had recurrent urinary tract infections. She has had one after the other urinary tract infections since February of 2019. The patient has been on different antibiotics. She is currently admitted with fever, hyponatremia, leukocytosis, and severe sepsis and urological consultation was sought following hospitalization. The patient denies stress incontinence. She reports very rare urge incontinence on only under severe circumstances. She also reports having had a history of gross hematuria in the past. She has never seen urologist. PAST MEDICAL AND SURGICAL HISTORY: 1. Chronic obstructive pulmonary disease. 2. Hyperlipidemia. 3. Hypertension. 4. Diabetes mellitus type 2. 5. Status post cholecystectomy. 6. Status post hysterectomy without salpingo-oophorectomy. 7. Status post bilateral cataract surgery. 8. Status post gastric stapling. 9. Status post lap band procedure. 10. Status post removal of lap band procedure. 11. Mild chronic renal insufficiency. 12. History of acute renal failure in the past at [facility]. 13. History of pneumonia. ALLERGIES: NONE KNOWN. CURRENT MEDICATIONS: Please refer to the MAR. SOCIAL HISTORY: The patient used to smoke a one pack per day of cigarettes. She has weaned herself down four cigarettes per day and has stopped smoking during this hospitalization. Denies ethanol and drug use. 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 FAMILY HISTORY: Noncontributory to the active urological problems. REVIEW OF SYSTEMS: Discussed as above history of present illness, past medical history, otherwise negative for all systems. PHYSICAL EXAMINATION: GENERAL: Very pleasant middle-aged woman, sitting up in bed, in no apparent distress. Vital Signs: She is currently afebrile. Vitals are currently stable. Abdomen: Soft, nondistended, and nontender without costovertebral angle tenderness. Kidneys are not palpable without hepatosplenomegaly. No obvious evidence of hernia. For the remaining physical examination systems, please refer to the admission history and physical in chart. LABORATORY STUDIES: CT scan of the abdomen and pelvis revealed a 2.3 cm left adrenal nodule and several subcentimeter right renal cyst and there was no specific mammographic inflammation on the right-hand side. Urine culture showed an Escherichia coli that was resistant to ampicillin the Unasyn, Cipro, Levaquin, and Bactrim. White blood cell count was up to 18,770 yesterday, it was down to 10,310, hemoglobin 9.8, and platelets 267,000. The patient's sodium was low at 133. Urinalysis revealed pyuria and microhematuria. ASSESSMENT: 1. Complicated urinary tract infections. 2. Urge incontinence. 3. Hematuria. 4. Leukocytosis that improved. 5. Anemia. 6. Hyponatremia. 7. Microhematuria. 8. Adrenal nodule. 9. Right renal cysts. 10. Right pyelonephritis. PLAN: 1. Antibiotics per the Infectious Disease media sales consultant. 2. Adrenal mass workup in progress by Endocrinology. 3. The patient will need elective cystoscopy and retrogrades as an outpatient. 4. Ongoing urological followup is must. Thank you much for involving us in care of your patient. We will be happy to follow along with you as well as an outpatient. Maury Anguiano MD [place]/MODL /[id number] cc: MD Ynes Paul MD Muhammad Faisal, MD
[2019-06-28] MEDS: SODIUM CHLORIDE 0.9% 1000ML 1,000 ML IV SCH (04:11)
[2019-06-28 07:03] LABS: BASOPHILS # (AUTO) 0.1 (0.0-0.1); EOSINOPHILS # (AUTO) 0.4 (0.0-0.4); EOSINOPHILS % 6.1 % (0.0-6.0); HEMOGLOBIN 10.1 g/dL (12.0-16.0); LYMPHOCYTES # (AUTO) 2.2 (1.0-3.2); LYMPHOCYTES % 35.8 % (18.0-39.1); MEAN CORPUSCULAR HEMOGLOBIN 25.9 pg (28-32); MEAN CORPUSCULAR HGB CONC 31.6 g/dL (31-35); MEAN CORPUSCULAR VOLUME 82.1 fL (81-99); MONOCYTES # (AUTO) 0.6 (0.2-0.8); NEUTROPHILS % 47.9 % (38.7-80.0); PLATELET COUNT 379 x10e3/uL (140-360)
[2019-06-28 07:29] LABS: ALANINE AMINOTRANSFERASE 17 IU/L (0-55); ALBUMIN 2.7 g/dL (3.5-5.0); ALBUMIN/GLOBULIN RATIO 0.7 (0.8-2.0); ALKALINE PHOSPHATASE 39 IU/L (40-150); ANION GAP 10.7 mmol/L (8-16); BLOOD UREA NITROGEN 7 mg/dL (7-26); BUN/CREATININE RATIO 9 (6-25); CALCIUM 8.9 mg/dL (8.4-10.2); CARBON DIOXIDE 27 mmol/L (22-29); CHLORIDE 101 mmol/L (98-107); CREATININE, SERUM 0.79 mg/dL (0.57-1.11); EST GLOMERULAR FILTRATION RATE > 60 ML/MIN (60-); GLUCOSE 135 mg/dL (74-118); POTASSIUM 3.7 mmol/L (3.5-5.1); SODIUM 135 mmol/L (136-145)
[2019-06-28] MEDS: INSULIN REGULAR, HUMAN 100 UNIT/1 ML 3ML VIAL SQ SCH ×4 (07:30→21:02)
[2019-06-28] MEDS: GLIMEPIRIDE 2 MG TAB PO SCH ×2 (08:30→17:18)
[2019-06-28] MEDS: HYDROCODONE/APAP 10MG-325MG TAB PO SCH ×4 (08:57→21:02)
[2019-06-28] MEDS: AMLODIPINE BESYLATE 10 MG TAB PO SCH (08:57)
[2019-06-28] MEDS: HYDRALAZINE HCL 25 MG TAB PO SCH ×2 (08:57→17:19)
[2019-06-28] MEDS: CARVEDILOL 3.125 MG TAB PO SCH ×2 (08:57→17:19)
[2019-06-28] MEDS: SITAGLIPTIN 100 MG TAB PO SCH (08:57)
[2019-06-28] MEDS: LOSARTAN POTASSIUM 25 MG TAB PO SCH (08:57)
[2019-06-28] MEDS ORDERED: GUAIFENESIN 200 MG/10 ML UDC PO PRN (09:45)
[2019-06-28] MEDS: ALBUTEROL/IPRATROPIUM 3 ML NEB NEB SCH ×2 (10:50→18:44)
[2019-06-28] MEDS: BUDESONIDE/FORMOTEROL FUMARATE 80/4.5MCG 6.9 GM INH AEROSOL IH SCH ×2 (10:55→18:44)
[2019-06-28] MEDS: CEFEPIME 2 GM/NS 0.9% 100 ML 100 ML IV SCH ×2 (12:25→23:47)
--- NOTE | 2019-06-28 12:26 | NUR ---
MD MARTINEZ INTO SEE PT, DISCUSSED POC, OKAY TO DISCHARGE FROM HIS STANDPOINT
--- NOTE | 2019-06-28 13:17 | NUR ---
MD CARDENASB INTO SEE PT, DISCUSSED POC
[2019-06-28] MEDS ORDERED: DOXYCYCLINE HYCLATE TABLET 100 MG TAB PO SCH (17:00)
[2019-06-28] MEDS: DIPHENHYDRAMINE HCL 25 MG CAP PO PRN (17:15)
--- NOTE | 2019-06-28 19:00 | NUR ---
RECEIVED PATIENT IN BEDSIDE REPORT. PATIENT SITTING UP IN BED AT THIS TIME, NO PAIN REPORTED. NO S&S OF DISTRESS NOTED. BED LOCKED IN LOWEST POSITION, SIDE RAILS UPX2, CALL LIGHT IN REACH.
[2019-06-28] MEDS: SIMVASTATIN 20 MG TAB PO SCH (21:02)
[2019-06-28] MEDS: DOXYCYCLINE HYCLATE TABLET 100 MG TAB PO SCH (21:13)
[2019-06-29] VITALS (7 sets, daily range): BP systolic 123–179; BP diastolic 58–92
[2019-06-29] MEDS: ALBUTEROL/IPRATROPIUM 3 ML NEB NEB SCH ×4 (00:15→18:48)
[2019-06-29 06:21] LABS: ANION GAP 10.8 mmol/L (8-16); BLOOD UREA NITROGEN 10 mg/dL (7-26); BUN/CREATININE RATIO 12 (6-25); CARBON DIOXIDE 27 mmol/L (22-29); CHLORIDE 100 mmol/L (98-107); CREATININE, SERUM 0.81 mg/dL (0.57-1.11); EST GLOMERULAR FILTRATION RATE > 60 ML/MIN (60-); GLUCOSE 218 mg/dL (74-118); POTASSIUM 3.8 mmol/L (3.5-5.1); SODIUM 134 mmol/L (136-145)
[2019-06-29] MEDS: BUDESONIDE/FORMOTEROL FUMARATE 80/4.5MCG 6.9 GM INH AEROSOL IH SCH ×2 (07:25→18:48)
[2019-06-29] MEDS: CARVEDILOL 3.125 MG TAB PO SCH ×2 (09:48→16:48)
[2019-06-29] MEDS: GLIMEPIRIDE 2 MG TAB PO SCH ×2 (09:48→16:48)
[2019-06-29] MEDS: HYDRALAZINE HCL 25 MG TAB PO SCH ×3 (09:48→21:25)
[2019-06-29] MEDS: INSULIN REGULAR, HUMAN 100 UNIT/1 ML 3ML VIAL SQ SCH ×4 (09:48→21:00)
[2019-06-29] MEDS: HYDROCODONE/APAP 10MG-325MG TAB PO SCH ×4 (09:49→21:25)
[2019-06-29] MEDS: AMLODIPINE BESYLATE 10 MG TAB PO SCH (09:49)
[2019-06-29] MEDS: SITAGLIPTIN 100 MG TAB PO SCH (09:49)
[2019-06-29] MEDS: LOSARTAN POTASSIUM 25 MG TAB PO SCH (09:49)
[2019-06-29] MEDS: DOXYCYCLINE HYCLATE TABLET 100 MG TAB PO SCH ×2 (09:49→21:24)
[2019-06-29] MEDS: CEFEPIME 2 GM/NS 0.9% 100 ML 100 ML IV SCH (10:42)
--- NOTE | 2019-06-29 18:02 | Progress Note ---
DATE: SUBJECTIVE: Ms. Cha is doing better. There is no new complaint. REVIEW OF SYSTEMS: HEENT: Negative. PULMONARY: Negative. CARDIAC: Negative. PHYSICAL EXAMINATION: GENERAL: Currently, she is alert and oriented. Does not seem to be in acute distress. VITAL SIGNS: Stable, afebrile. HEENT: She is not icteric. NECK: Supple. CHEST: Clear. HEART: S1 and S2. No S3, S4, or murmur. ABDOMEN: Soft. Bowel sounds present. No tenderness. EXTREMITIES: No edema. IMPRESSION: 1. Urinary tract infection and pyelonephritis, doing better. 2. Obesity. 3. From Infectious Disease point of view, the plan is to discharge home tomorrow with oral antibiotic prescription after discharge. Follow up as an outpatient in 2 weeks. A Urology workup after clearing the infection. MD NOVA Rangel/CHAKA /[id number]
--- NOTE | 2019-06-29 19:07 | NUR ---
RECEIVED REPORT FROM PREVIOUS NURSE. CALL LIGHT WITHIN REACH. PATIENT IN BED.
[2019-06-29] MEDS ORDERED: INSULIN GLARGINE 100 UNITS/ML VIAL SQ SCH ×2 (21:00)
[2019-06-29] MEDS: SIMVASTATIN 20 MG TAB PO SCH (21:24)
[2019-06-29] MEDS: TRAZODONE HCL 50 MG TAB PO PRN (22:09)
[2019-06-29] MEDS: DIPHENHYDRAMINE HCL 25 MG CAP PO PRN (22:12)
[2019-06-30] VITALS: BP 136/65
[2019-06-30] MEDS: ALBUTEROL/IPRATROPIUM 3 ML NEB NEB SCH ×2 (00:05→07:10)
[2019-06-30] MEDS: CEFEPIME 2 GM/NS 0.9% 100 ML 100 ML IV SCH (00:16)
[2019-06-30 04:00] VITALS: BP 128/71
[2019-06-30] MEDS: HYDRALAZINE HCL 25 MG TAB PO SCH (06:00)
[2019-06-30 06:03] LABS: BASOPHILS # (AUTO) 0.1 (0.0-0.1); BASOPHILS % 0.9 % (0.0-1.0); EOSINOPHILS # (AUTO) 0.4 (0.0-0.4); EOSINOPHILS % 4.4 % (0.0-6.0); HEMATOCRIT 33.5 % (34.2-44.1); HEMOGLOBIN 10.5 g/dL (12.0-16.0); LYMPHOCYTES # (AUTO) 3.6 (1.0-3.2); LYMPHOCYTES % 45.4 % (18.0-39.1); MEAN CORPUSCULAR HEMOGLOBIN 25.6 pg (28-32); MEAN CORPUSCULAR HGB CONC 31.3 g/dL (31-35); MEAN CORPUSCULAR VOLUME 81.7 fL (81-99); MONOCYTES # (AUTO) 0.6 (0.2-0.8); NEUTROPHILS # (AUTO) 3.2 (2.1-6.9); NEUTROPHILS % 40.9 % (38.7-80.0); PLATELET COUNT 462 x10e3/uL (140-360); RED CELL DISTRIBUTION WIDTH 15.4 % (11.7-14.4); RETICULOCYTE % 1.3 % (0.8-2.2)
[2019-06-30 06:27] LABS: % IRON SATURATION 8 % (15-50); ALANINE AMINOTRANSFERASE 22 IU/L (0-55); ALBUMIN/GLOBULIN RATIO 0.8 (0.8-2.0); ALKALINE PHOSPHATASE 43 IU/L (40-150); BLOOD UREA NITROGEN 10 mg/dL (7-26); BUN/CREATININE RATIO 11 (6-25); CALCIUM 9.3 mg/dL (8.4-10.2); CARBON DIOXIDE 28 mmol/L (22-29); CHLORIDE 98 mmol/L (98-107); CREATININE, SERUM 0.91 mg/dL (0.57-1.11); EST GLOMERULAR FILTRATION RATE > 60 ML/MIN (60-); GLUCOSE 196 mg/dL (74-118); IRON 33 ug/dL (50-170); SODIUM 135 mmol/L (136-145); TOTAL IRON BINDING CAPACITY 410 ug/dL (261-478); TRANSFERRIN 293 mg/dL (180-382)
[2019-06-30 06:49] LABS: FERRITIN 56.49 ng/mL (4.63-204.00)
--- NOTE | 2019-06-30 07:00 | NUR ---
RECEIVED PATIENT RESTING IN BED NO S/S OF DISTRESS. BED LOW, WHEELS LOCKED, SIDE RAILS X2. CALL LIGHT IN REACH WILL CONTINUE TO MONITOR PATIENT.
[2019-06-30 07:04] LABS: EOSINOPHILS % (MANUAL) 4 % (0-7); LYMPHOCYTES % (MANUAL) 46 % (19-48); MONOCYTES % (MANUAL) 6 % (3.4-9.0); NEUTROPHILS % (MANUAL) 40 % (40-74)
[2019-06-30 07:06] LABS: ANISOCYTOSIS SLIGHT; MICROCYTOSIS SLIGHT; PLATELET ESTIMATE SLIGHTLY INCREASED; RBC MORPHOLOGY COMMENT ABNORMAL
[2019-06-30 07:07] LABS: PLATELET MORPHOLOGY COMMENT FEW LARGE
[2019-06-30] MEDS: BUDESONIDE/FORMOTEROL FUMARATE 80/4.5MCG 6.9 GM INH AEROSOL IH SCH (07:10)
--- NOTE | 2019-06-30 07:21 | NUR ---
GAVE REPORT TO ONCOMING NURSE. CALL LIGHT WITHIN REACH. PATIENT IN BED
[2019-06-30] MEDS: INSULIN REGULAR, HUMAN 100 UNIT/1 ML 3ML VIAL SQ SCH (07:30)
[2019-06-30] MEDS ORDERED: PANTOPRAZOLE SOD 40 MG TABEC PO SCH (07:30)
[2019-06-30 07:40] VITALS: BP 122/79
[2019-06-30] MEDS: SITAGLIPTIN 100 MG TAB PO SCH (08:19)
[2019-06-30] MEDS: HYDROCODONE/APAP 10MG-325MG TAB PO SCH (08:19)
[2019-06-30] MEDS: CARVEDILOL 3.125 MG TAB PO SCH (08:19)
[2019-06-30] MEDS: GLIMEPIRIDE 2 MG TAB PO SCH (08:19)
[2019-06-30] MEDS: LOSARTAN POTASSIUM 25 MG TAB PO SCH (08:19)
[2019-06-30] MEDS: AMLODIPINE BESYLATE 10 MG TAB PO SCH (08:19)
[2019-06-30] MEDS: DOXYCYCLINE HYCLATE TABLET 100 MG TAB PO SCH (08:20)
[2019-06-30 08:24] VITALS: BP 122/79
[2019-06-30] MEDS ORDERED: KEFLEX500 MG PO (08:49)
[2019-06-30] MEDS ORDERED: FLUCONAZOLE 100 MG TAB PO SCH (09:00)
--- NOTE | 2019-06-30 09:25 | NUR ---
REMOVED PATIENTS IV. CATHETER TIP INTACT AND PRESSURE DRESSING APPLIED.
--- NOTE | 2019-06-30 09:54 | NUR ---
PATIENT DISCHARGED FROM FACILITY. PATIENT GATHERED ALL PERSONAL BELONGINGS, DISCHARGE INSTRUCTIONS, AND FOLLOW UP INFORMATION. LEFT UNIT IN WHEELCHAIR AND WENT HOME VIA PRIVATE AUTO. NO SIGNS OF DISTRESS WHEN LEAVING FACILITY.
== END 2019-06-30 09:54 | disposition home or self-care (01) | DRG 872 ==
LOC: ER 21:15 → ERHOLD 06-25 00:02 → IMCU 06-25 01:35 → MED/SURG 06-27 13:41
PROVIDERS: ADMIT Internal Medicine; ATTEND Internal Medicine
DX: A41.9 Sepsis, unspecified organism (principal); E87.1 Hypo-osmolality and hyponatremia; J44.1 Chronic obstructive pulmonary disease with (acute) exacerbation; N12 Tubulo-interstitial nephritis, not specified as acute or chronic; Z16.24 Resistance to multiple antibiotics; E11.9 Type 2 diabetes mellitus without complications; E78.5 Hyperlipidemia, unspecified; D64.9 Anemia, unspecified; I10 Essential (primary) hypertension; Z79.4 Long term (current) use of insulin; E66.9 Obesity, unspecified; Z68.33 Body mass index [BMI] 33.0-33.9, adult; K29.70 Gastritis, unspecified, without bleeding; B96.20 Unspecified Escherichia coli [E. coli] as the cause of diseases classified elsewhere; E27.9 Disorder of adrenal gland, unspecified; Z87.440 Personal history of urinary (tract) infections; R31.29 Other microscopic hematuria; N28.1 Cyst of kidney, acquired; N39.41 Urge incontinence; R91.1 Solitary pulmonary nodule; F17.210 Nicotine dependence, cigarettes, uncomplicated
CPT/HCPCS: 36415; 71045; 71250; 74177; 80048; 80053; 81001; 82530; 82550; 82553; 82728; 82948; 83036; 83540; 83605; 83835; 84439; 84443; 84466; 84484; 84585; 85025; 85045; 85610; 85730; 87040; 87086; 87186; 93005; 94640; 94664; 96374; 99284; J1815; J1817; J2405; J7030; Q9967

== ENCOUNTER 2020-02-27 23:46 | Emergency (ER) | payer OTHER ==
[~2020-02-27] VITALS: Ht 167.6 cm; Wt 94.3 kg
[~2020-02-27 23:46] MED LIST changes: +KEFLEX500 MG PO
[2020-02-27] MEDS ORDERED: ACTIVATED CHARCOAL 25 GM/120 ML PO STA (23:50)
[2020-02-28 00:16] LABS: BASOPHILS # (AUTO) 0.1 (0.0-0.1); BASOPHILS % 0.8 % (0.0-1.0); EOSINOPHILS # (AUTO) 0.4 (0.0-0.4); EOSINOPHILS % 3.3 % (0.0-6.0); HEMATOCRIT 37.7 % (34.2-44.1); LYMPHOCYTES # (AUTO) 5.7 (1.0-3.2); LYMPHOCYTES % 43.3 % (18.0-39.1); MEAN CORPUSCULAR HEMOGLOBIN 23.4 pg (28-32); MEAN CORPUSCULAR HGB CONC 29.2 g/dL (31-35); MONOCYTES # (AUTO) 0.9 (0.2-0.8); MONOCYTES % 6.8 % (4.4-11.3); NEUTROPHILS % 45.3 % (38.7-80.0); PLATELET COUNT 537 x10e3/uL (140-360); RED BLOOD COUNT 4.71 x10e6/uL (3.6-5.1); RED CELL DISTRIBUTION WIDTH 15.9 % (11.7-14.4)
[2020-02-28 00:31] LABS: ALBUMIN 4.1 g/dL (3.5-5.0); ANION GAP 15.3 mmol/L (8-16); CALCIUM 9.7 mg/dL (8.4-10.2); CREATININE, SERUM 1.31 mg/dL (0.57-1.11); POTASSIUM 4.3 mmol/L (3.5-5.1)
--- NOTE | 2020-02-28 01:05 | Emergency Department Note ---
History of Present Illnes History of Present Illness Chief Complaint: General Medicine Complaints History of Present Illness This is a 64 year old female EPORTS ACCIDENTLY "TOOK 20 OF MY 'S NORCOS BECAUSE I THOUGHT IT WAS MY NIGHTTIME PILLS." POISON CONTROL CONTACTED, AIYANA POLLOCK INFORMED OF INSTRUCTIONS; WILL OBTAIN TYLENOL LEVEL AT 0115; 20 GAUGE IV CATH PLACED TO PTS RIGHT AC, BLOOD OBTAINED FOR LAB ANALYSIS; PT DENIES ANY SUICIDAL OR HOMICIDAL IDEATION . Historian: Patient Arrival Mode: Car Onset (how long ago): hour(s) (2.5) Location: NONE Quality: ACCIDENTAL INGESTION OF HUSBANDS NORCO Radiation: Reports non-radiation Severity: mild Onset quality: sudden Duration (how long): hour(s) (2.5) Timing of current episode: constant Progression: unchanged Chronicity: new Context: Denies recent illness, Denies recent surgery Relieving factors: none Exacerbating factors: none Associated symptoms: Reports denies other symptoms Past Medical/Family History Physician Review I have reviewed the patient's past medical and family history. Any updates have been documented here. Past Medical History Recent Fever: No Clinical Suspicion of Infectio: No New/Unexplained Change in Ment: No Past Medical History: Hypertension, Diabetes, COPD, UTI's, Hyperlipedemia, Chronic Kidney Disease Other Medical History: CARDIAC ARREST SEPSIS Past Surgical History: Cholecysctectomy, Hysterectomy Other Surgery: STOMACH BANDING. CARDIAC STENT Social History Smoking Cessation: Current every day smoker Counseling Performed: No Alcohol Use: None Any Illegal Drug Use: No Other Last Tetanus: UNKNOWN Any Pre-Existing Lines (PICC,: No Review of Systems Review of Systems Constitutional: Reports no symptoms EENTM: Reports no symptoms Cardiovascular: Reports no symptoms Respiratory: Reports no symptoms Gastrointestinal: Reports no symptoms Genitourinary: Reports no symptoms Musculoskeletal: Reports no symptoms Integumentary: Reports no symptoms Neurological: Reports no symptoms Psychological: Reports no symptoms Endocrine: Reports no symptoms Hematological/Lymphatic: Reports no symptoms Physical Exam Related Data Allergies: Coded Allergies: No Known Drug Allergies (Verified Allergy, Unknown, 06/13/19) Triage Vital Signs Vital Signs Date Time Temp Pulse Resp B/P (MAP) Pulse Ox O2 Delivery O2 Flow Rate FiO2 02/27/20 23:51 97.9 94 17 149/73 98 Room Air Vital signs reviewed: Yes Physical Exam CONSTITUTIONAL Constitutional: Present well-developed, Present well-nourished HENT HENT: Present normocephalic, Present atraumatic, Present oropharynx clear/moist, Present nose normal HENT L/R: Present left ext ear normal, Present right ext ear normal EYES Eyes: Reports PERRL, Reports conjunctivae normal NECK Neck: Present ROM normal PULMONARY Pulmonary: Present effort normal, Present breath sounds normal CARDIOVASCULAR Cardiovascular: Present regular rhythm, Present heart sounds normal, Present capillary refill normal, Present normal rate GASTROINTESTINAL Abdominal: Present soft, Present nontender, Present bowel sounds normal GENITOURINARY Genitourinary: Present exam deferred SKIN Skin: Present warm, Present dry MUSCULOSKELETAL Musculoskeletal: Present ROM normal NEUROLOGICAL Neurological: Present alert, Present oriented x 3, Present no gross motor or sensory deficits PSYCHOLOGICAL Psychological: Present mood/affect normal, Present judgement normal Results Laboratory Result Diagram: 02/28/20 0002 02/28/20 0000 Laboratory Laboratory Tests Test 02/28/20 02:33 02/28/20 01:30 02/28/20 00:02 02/28/20 00:00 Urine Color Yellow (YELLOW) Urine Clarity Cloudy (CLEAR) Urine pH 6 (5 - 7) Urine Specific Marlin 1.020 (1.010-1.025) Urine Protein Negative (NEGATIVE) Urine Glucose (UA) Negative (NEGATIVE) Urine Ketones Negative (NEGATIVE) Urine Blood Negative (NEGATIVE) Urine Nitrite Negative (NEGATIVE) Urine Bilirubin Negative (NEGATIVE) Urine Urobilinogen 0.2 mg/dL (0.2 - 1) Urine Leukocyte Esterase Negative (NEGATIVE) Urine RBC None /HPF (0-5) Urine WBC 21-50 /HPF (0-5) Urine Epithelial Cells Many /LPF (NONE) Urine Bacteria Moderate /HPF (NONE) Urine Opiates Screen Positive (NEGATIVE) Urine Methadone Screen Negative (NEGATIVE) Urine Barbiturates Screen Negative (NEGATIVE) Urine Phencyclidine Screen Negative (NEGATIVE) Urine Amphetamines Screen Negative (NEGATIVE) Urine Methamphetamines Screen Negative (NEGATIVE) Urine Benzodiazepines Screen Negative (NEGATIVE) Urine Cocaine Screen Negative (NEGATIVE) Urine Cannabinoids Screen Positive (NEGATIVE) Acetaminophen Level 13.5 ug/mL (10-30) White Blood Count 13.27 x10e3/uL (4.8-10.8) Red Blood Count 4.71 x10e6/uL (3.6-5.1) Hemoglobin 11.0 g/dL (12.0-16.0) Hematocrit 37.7 % (34.2-44.1) Mean Corpuscular Volume 80.0 fL (81-99) Mean Corpuscular Hemoglobin 23.4 pg (28-32) Mean Corpuscular Hemoglobin Concent 29.2 g/dL (31-35) Red Cell Distribution Width 15.9 % (11.7-14.4) Platelet Count 537 x10e3/uL (140-360) Neutrophils (%) (Auto) 45.3 % (38.7-80.0) Lymphocytes (%) (Auto) 43.3 % (18.0-39.1) Monocytes (%) (Auto) 6.8 % (4.4-11.3) Eosinophils (%) (Auto) 3.3 % (0.0-6.0) Basophils (%) (Auto) 0.8 % (0.0-1.0) Neutrophils # (Auto) 6.0 (2.1-6.9) Lymphocytes # (Auto) 5.7 (1.0-3.2) Monocytes # (Auto) 0.9 (0.2-0.8) Eosinophils # (Auto) 0.4 (0.0-0.4) Basophils # (Auto) 0.1 (0.0-0.1) Absolute Immature Granulocyte (auto 0.06 x10e3/uL (0-0.1) Sodium Level 135 mmol/L (136-145) Potassium Level 4.3 mmol/L (3.5-5.1) Chloride Level 98 mmol/L (98-107) Carbon Dioxide Level 26 mmol/L (22-29) Anion Gap 15.3 mmol/L (8-16) Blood Urea Nitrogen 9 mg/dL (7-26) Creatinine 1.31 mg/dL (0.57-1.11) Estimat Glomerular Filtration Rate 41 ML/MIN (60-) BUN/Creatinine Ratio 7 (6-25) Glucose Level 183 mg/dL (74-118) Calcium Level 9.7 mg/dL (8.4-10.2) Total Bilirubin 0.2 mg/dL (0.2-1.2) Aspartate Amino Transf (AST/SGOT) 26 IU/L (5-34) Alanine Aminotransferase (ALT/SGPT) 26 IU/L (0-55) Alkaline Phosphatase 41 IU/L (40-150) Total Protein 8.3 g/dL (6.5-8.1) Albumin 4.1 g/dL (3.5-5.0) Globulin 4.2 g/dL (2.3-3.5) Albumin/Globulin Ratio 1.0 (0.8-2.0) Test 02/28/20 00:00 Salicylates Level < 5.0 mg/dL (0-30) Laboratory Tests Test 02/28/20 00:02 02/28/20 00:00 02/28/20 00:00 White Blood Count 13.27 x10e3/uL (4.8-10.8) Red Blood Count 4.71 x10e6/uL (3.6-5.1) Hemoglobin 11.0 g/dL (12.0-16.0) Hematocrit 37.7 % (34.2-44.1) Mean Corpuscular Volume 80.0 fL (81-99) Mean Corpuscular Hemoglobin 23.4 pg (28-32) Mean Corpuscular Hemoglobin Concent 29.2 g/dL (31-35) Red Cell Distribution Width 15.9 % (11.7-14.4) Platelet Count 537 x10e3/uL (140-360) Neutrophils (%) (Auto) 45.3 % (38.7-80.0) Lymphocytes (%) (Auto) 43.3 % (18.0-39.1) Monocytes (%) (Auto) 6.8 % (4.4-11.3) Eosinophils (%) (Auto) 3.3 % (0.0-6.0) Basophils (%) (Auto) 0.8 % (0.0-1.0) Neutrophils # (Auto) 6.0 (2.1-6.9) Lymphocytes # (Auto) 5.7 (1.0-3.2) Monocytes # (Auto) 0.9 (0.2-0.8) Eosinophils # (Auto) 0.4 (0.0-0.4) Basophils # (Auto) 0.1 (0.0-0.1) Absolute Immature Granulocyte (auto 0.06 x10e3/uL (0-0.1) Sodium Level 135 mmol/L (136-145) Potassium Level 4.3 mmol/L (3.5-5.1) Chloride Level 98 mmol/L (98-107) Carbon Dioxide Level 26 mmol/L (22-29) Anion Gap 15.3 mmol/L (8-16) Blood Urea Nitrogen 9 mg/dL (7-26) Creatinine 1.31 mg/dL (0.57-1.11) Estimat Glomerular Filtration Rate 41 ML/MIN (60-) BUN/Creatinine Ratio 7 (6-25) Glucose Level 183 mg/dL (74-118) Calcium Level 9.7 mg/dL (8.4-10.2) Total Bilirubin 0.2 mg/dL (0.2-1.2) Aspartate Amino Transf (AST/SGOT) 26 IU/L (5-34) Alanine Aminotransferase (ALT/SGPT) 26 IU/L (0-55) Alkaline Phosphatase 41 IU/L (40-150) Total Protein 8.3 g/dL (6.5-8.1) Albumin 4.1 g/dL (3.5-5.0) Globulin 4.2 g/dL (2.3-3.5) Albumin/Globulin Ratio 1.0 (0.8-2.0) Salicylates Level < 5.0 mg/dL (0-30) Lab results reviewed: Yes Assessment & Plan Medical Decision Making MDM PT WITH ACCIDENTAL INGESTION OF HUSBANDS NORCO POISON CONTROL CONTACTED CBC, CMP, ACETAMINOPHEN LEVEL ORDERED TO EVAL FOR ELEVATED LFT'S, TYLENOL TOXICITY Reassessment Reassessment time: 05:24 Reassessment PT WITH ON COMPLAINTS, ALERT AND ORIENTED TIMES THREE, WALKS WITH STEADY GAIT. Assessment & Plan Final Impression: (1) Accidental drug ingestion Depart Disposition: HOME, SELF-CARE Last Vital Signs Date Time Temp Pulse Resp B/P (MAP) Pulse Ox O2 Delivery O2 Flow Rate FiO2 02/27/20 23:51 97.9 94 17 149/73 98 Room Air Home Meds Reported Medications Cephalexin Monohydrate (KEFLEX) 500 Mg Capsule, 500 MG PO TID 06/30/19 Albuterol Sulf* (PROAIR HFA INHALER*) 8.5 Gm Inh, 2 INH INH PRN PRN for SHORTNESS OF BREATH 06/13/19 Carisoprodol (SOMA) 350 Mg Tablet, 350 MG PO TID, TAB 06/13/19 Hydrocodone Bit/Acetaminophen (NORCO 10-325 TABLET) 1 Each Tablet, 1 TAB PO QID 06/13/19 Fenofibrate (FENOFIBRATE) 160 Mg Tablet, 160 MG PO DAILY 06/13/19 [Microbid] No Conflict Check, 100 MG PO BID 06/13/19 Sitagliptin Phosphate (JANUVIA) 100 Mg Tablet, 100 MG PO DAILY, #30 TAB 06/13/19 Glimepiride (GLIMEPIRIDE) 2 Mg Tablet, 4 MG PO BID, TAB 06/13/19 Hydralazine Hcl (HYDRALAZINE HCL) 25 Mg Tab, 25 MG PO BID, TAB 06/13/19 Budesonide/Formoterol Fumarate (SYMBICORT 80-4.5 MCG INHALER) 10.2 Gm Hfa.aer.ad, 1 EACH INH BID, EACH 12/23/14 Losartan Potassium (LOSARTAN POTASSIUM) 25 Mg Tablet, 25 MG PO DAILY 12/23/14 Amlodipine Besylate (NORVASC) 10 Mg Tab, 10 MG PO DAILY 03/30/14 Carvedilol (CARVEDILOL) 3.125 Mg Tablet, 6.25 MG PO BID, #60 TAB 03/27/14 Metformin Hcl (METFORMIN HCL) 500 Mg Tablet, 1000 MG PO BID 03/26/14 Simvastatin (SIMVASTATIN) 20 Mg Tablet, 10 MG PO DAILY 03/26/14 Medications in the ED Charcoal 50 gm NOW STAT PO Last administered on 02/28/20at 00:28; Admin Dose 50 GM; Start 02/27/20 at 23:50; Stop 02/27/20 at 23:51; Status DC NAINA BENNETT MD Feb 28, 2020 01:05
[2020-02-28 02:58] LABS: AMPHETAMINES SCREEN,URINE NEGATIVE (NEGATIVE); BENZODIAZEPINES SCREEN,URINE NEGATIVE (NEGATIVE); PHENCYCLIDINE SCREEN,URINE NEGATIVE (NEGATIVE)
[2020-02-28 03:07] LABS: CLARITY,URINE CLOUDY (CLEAR); COLOR,URINE YELLOW (YELLOW)
[2020-02-28 03:08] LABS: BILIRUBIN,URINE NEGATIVE (NEGATIVE); KETONES,URINE NEGATIVE (NEGATIVE); LEUKOCYTE ESTERASE ,URINE NEGATIVE (NEGATIVE); NITRITE,URINE NEGATIVE (NEGATIVE); PROTEIN,URINE DIPSTICK NEGATIVE (NEGATIVE); URINE UROBILINOGEN 0.2 mg/dL (0.2 - 1)
[2020-02-28 03:09] LABS: BACTERIA,URINE MODERATE /HPF; EPITHELIAL CELLS,URINE MANY /LPF; WBC,URINE (MAN) 21-50 /HPF (0-5)
--- NOTE | 2020-02-28 05:50 | NUR ---
SPOKE Maurice ROWLAND AT POISON CONTROL. INFORMED THAT CLEARED FOR DC BY .
== END 2020-02-28 06:25 | disposition home or self-care (01) ==
LOC: ER 23:59
DX: T40.2X1A Poisoning by other opioids, accidental (unintentional), initial encounter (principal); Y92.008 Other place in unspecified non-institutional (private) residence as the place of occurrence of the external cause; I10 Essential (primary) hypertension; E11.9 Type 2 diabetes mellitus without complications; J44.9 Chronic obstructive pulmonary disease, unspecified; E78.5 Hyperlipidemia, unspecified; N18.9 Chronic kidney disease, unspecified; Z95.5 Presence of coronary angioplasty implant and graft; Z98.84 Bariatric surgery status
CPT/HCPCS: 36415; 80053; 80307; 80329; 81001; 85025; 99283

== ENCOUNTER 2020-11-25 21:21 | Emergency (ER) | payer OTHER ==
[~2020-11-25] VITALS: Ht 167.6 cm; Wt 94.3 kg
[2020-11-25 22:13] LABS: BASOPHILS # (AUTO) 0.1 (0.0-0.1); BASOPHILS % 0.7 % (0.0-1.0); EOSINOPHILS # (AUTO) 0.4 (0.0-0.4); EOSINOPHILS % 3.4 % (0.0-6.0); HEMATOCRIT 38.6 % (34.2-44.1); HEMOGLOBIN 12.2 g/dL (12.0-16.0); LYMPHOCYTES # (AUTO) 5.5 (1.0-3.2); LYMPHOCYTES % 51.8 % (18.0-39.1); MEAN CORPUSCULAR HEMOGLOBIN 27.4 pg (28-32); MEAN CORPUSCULAR HGB CONC 31.6 g/dL (31-35); MEAN CORPUSCULAR VOLUME 86.7 fL (81-99); MONOCYTES # (AUTO) 0.7 (0.2-0.8); MONOCYTES % 6.1 % (4.4-11.3); NEUTROPHILS % 37.6 % (38.7-80.0); PLATELET COUNT 419 x10e3/uL (140-360); RED BLOOD COUNT 4.45 x10e6/uL (3.6-5.1); RED CELL DISTRIBUTION WIDTH 15.2 % (11.7-14.4)
[2020-11-25 22:30] LABS: ANION GAP 15.7 mmol/L (8-16); CREATININE, SERUM 1.03 mg/dL (0.57-1.11); POTASSIUM 3.7 mmol/L (3.5-5.1)
[2020-11-25 22:37] LABS: CLARITY,URINE CLOUDY (CLEAR); COLOR,URINE ORANGE (YELLOW); LEUKOCYTE ESTERASE ,URINE 2+ (NEGATIVE)
[2020-11-25 22:38] LABS: KETONES,URINE NEGATIVE (NEGATIVE); NITRITE,URINE POSITIVE (NEGATIVE); PROTEIN,URINE DIPSTICK 2+ (NEGATIVE); URINE UROBILINOGEN 2 mg/dL (0.2 - 1)
[2020-11-25 22:50] LABS: EPITHELIAL CELLS,URINE FEW /LPF; WBC,URINE (MAN) >50 /HPF (0-5)
[2020-11-25 22:51] LABS: BACTERIA,URINE MODERATE /HPF
[2020-11-25] MEDS ORDERED: CEFTRIAXONE SOD 1 GM/50 ML BAG IV ONE (23:00)
[2020-11-25] MEDS ORDERED: CEFTRIAXONE SOD 1 GM VIAL ONE (23:09)
[2020-11-25] MEDS ORDERED: CEFTRIAXONE SOD 1 GM in DEXTROSE 5% 50ML 50 ML IV ONE (23:15)
== END 2020-11-26 00:30 | disposition home or self-care (01) ==
LOC: ER 21:44
DX: R30.0 Dysuria (principal); N39.0 Urinary tract infection, site not specified; I10 Essential (primary) hypertension; E11.9 Type 2 diabetes mellitus without complications; E78.5 Hyperlipidemia, unspecified; N18.9 Chronic kidney disease, unspecified; J44.9 Chronic obstructive pulmonary disease, unspecified; Z98.84 Bariatric surgery status
CPT/HCPCS: 36415; 80048; 81001; 85025; 87086; 87186; 99283; J0696

== ENCOUNTER 2021-01-16 18:42 | Emergency (ER) | payer OTHER ==
[~2021-01-16] VITALS: Ht 167.6 cm; Wt 94.3 kg
[2021-01-16] MEDS ORDERED: ORPHENADRINE CITRATE 30 MG/ML VIAL IM ONE (19:30)
[2021-01-16] MEDS ORDERED: KETOROLAC TROMETHAMINE 60 MG/2 ML VIAL IM ONE (19:30)
== END 2021-01-16 19:51 | disposition home or self-care (01) ==
LOC: ER 19:29
DX: M54.41 Lumbago with sciatica, right side (principal)
CPT/HCPCS: 99282; J1885; J2360

== ENCOUNTER 2021-06-01 13:41 | Emergency (ER) | payer MEDICARE, OTHER ==
[~2021-06-01] VITALS: Ht 167.6 cm; Wt 94.3 kg
[2021-06-01] MEDS ORDERED: HYDROCODONE/APAP 5MG-325MG TAB PO ONE (14:30)
[2021-06-01] MEDS ORDERED: HYDROCODONE/APAP 5MG-325MG TAB ONE (15:17)
[2021-06-01] MEDS ORDERED: CYCLOBENZAPRINE5 MG PO (17:21)
[2021-06-01] MEDS ORDERED: NAPROSYN500 MG PO (17:21)
== END 2021-06-01 17:34 | disposition home or self-care (01) ==
LOC: FSED 14:01
DX: S00.83XA Contusion of other part of head, initial encounter (principal); S13.4XXA Sprain of ligaments of cervical spine, initial encounter; S30.1XXA Contusion of abdominal wall, initial encounter; S20.219A Contusion of unspecified front wall of thorax, initial encounter; V43.52XA Car driver injured in collision with other type car in traffic accident, initial encounter; Y92.488 Other paved roadways as the place of occurrence of the external cause; I10 Essential (primary) hypertension; E11.9 Type 2 diabetes mellitus without complications; J44.9 Chronic obstructive pulmonary disease, unspecified; E78.5 Hyperlipidemia, unspecified; Z95.5 Presence of coronary angioplasty implant and graft; Z98.84 Bariatric surgery status
CPT/HCPCS: 70450; 71250; 72125; 74176; 99284

== ENCOUNTER 2021-08-23 18:10 | Inpatient (IN) | payer MEDICARE, OTHER ==
[~2021-08-23] VITALS: Ht 167.6 cm; Wt 93.0 kg
[~2021-08-23 18:10] MED LIST changes: +CYCLOBENZAPRINE5 MG PO; +NAPROSYN500 MG PO
[2021-08-23] MEDS ORDERED: METHYLPREDNISOLONE SOD SUCC 125 MG/2ML VIAL IV NR (18:45)
[2021-08-23] MEDS ORDERED: ALBUTEROL/IPRATROPIUM 3 ML NEB NEB NR (18:45)
[2021-08-23] MEDS ORDERED: CEFTRIAXONE 1 GM VIAL IM NR (19:45)
[2021-08-23] MEDS ORDERED: METHYLPREDNISOLONE SOD SUCC 125 MG/2ML VIAL IV ONE (20:15)
[2021-08-23 20:24] LABS: BASOPHILS # (AUTO) 0.1 (0.0-0.1); BASOPHILS % 0.5 % (0.0-1.0); EOSINOPHILS # (AUTO) 0.2 (0.0-0.4); EOSINOPHILS % 1.2 % (0.0-6.0); HEMATOCRIT 42.3 % (34.2-44.1); HEMOGLOBIN 13.6 g/dL (12.0-16.0); LYMPHOCYTES # (AUTO) 4.4 (1.0-3.2); LYMPHOCYTES % 30.2 % (18.0-39.1); MEAN CORPUSCULAR HEMOGLOBIN 28.8 pg (28-32); MEAN CORPUSCULAR HGB CONC 32.2 g/dL (31-35); MEAN CORPUSCULAR VOLUME 89.4 fL (81-99); MONOCYTES # (AUTO) 0.8 (0.2-0.8); MONOCYTES % 5.7 % (4.4-11.3); NEUTROPHILS # (AUTO) 9.1 (2.1-6.9); NEUTROPHILS % 61.9 % (38.7-80.0); PLATELET COUNT 448 x10e3/uL (140-360); RED BLOOD COUNT 4.73 x10e6/uL (3.6-5.1); RED CELL DISTRIBUTION WIDTH 13.2 % (11.7-14.4)
[2021-08-23] MEDS ORDERED: CEFTRIAXONE 1 GM in SODIUM CHLORIDE 0.9% 50ML 50 ML IV ONE (20:30)
[2021-08-23 20:42] LABS: ALBUMIN 3.7 g/dL (3.5-5.0); ALBUMIN/GLOBULIN RATIO 0.9 (0.8-2.0); CALCIUM 9.4 mg/dL (8.4-10.2); CREATININE, SERUM 0.95 mg/dL (0.57-1.11)
[2021-08-23] MEDS ORDERED: DEXTROSE 50% SYRINGE 50 ML IV PRN (22:00)
[2021-08-23] MEDS: HYDROCODONE/APAP 7.5MG-325MG 1 EA TAB PO PRN (22:10)
[2021-08-23 22:34] VITALS: BP 128/72
[2021-08-23 22:43] LABS: CREATINE KINASE MB 1.2 ng/mL (0-5.0)
[2021-08-23] MEDS: TRAZODONE HCL 50 MG TAB PO SCH (23:53)
[2021-08-23] MEDS ORDERED: METHOCARBAMOL500 MG PO (23:56)
[2021-08-23] MEDS ORDERED: SIMVASTATIN10 MG PO (23:56)
[2021-08-23] MEDS ORDERED: HYDROCODON-ACE1 EA12 PO (23:56)
[2021-08-23] MEDS ORDERED: METFORMIN HCL500 M1 PO (23:56)
[2021-08-23] MEDS ORDERED: CARVEDILOL6.25 MG PO (23:56)
[2021-08-23] MEDS ORDERED: TRAZODONE HCL100 MG PO (23:56)
[2021-08-23] MEDS ORDERED: LOSARTAN POTASS50 MG PO (23:56)
[2021-08-23] MEDS ORDERED: FLOMAX0.4 MG PO (23:56)
[2021-08-23] MEDS ORDERED: VITAMIN PO (23:56)
[2021-08-23] MEDS ORDERED: FERROUS SULFAT325 M1 PO (23:56)
[2021-08-23] MEDS ORDERED: GABAPENTIN300 MG PO (23:56)
[2021-08-24] VITALS (8 sets, daily range): BP systolic 128–162; BP diastolic 61–78
[2021-08-24 06:22] LABS: BASOPHILS % 0.2 % (0.0-1.0); HEMATOCRIT 40.2 % (34.2-44.1); HEMOGLOBIN 12.8 g/dL (12.0-16.0); LYMPHOCYTES % 10.9 % (18.0-39.1); MEAN CORPUSCULAR HEMOGLOBIN 29.1 pg (28-32); MEAN CORPUSCULAR HGB CONC 31.8 g/dL (31-35); MEAN CORPUSCULAR VOLUME 91.4 fL (81-99); MONOCYTES # (AUTO) 0.1 (0.2-0.8); MONOCYTES % 1.1 % (4.4-11.3); NEUTROPHILS # (AUTO) 8.3 (2.1-6.9); NEUTROPHILS % 87.4 % (38.7-80.0); PLATELET COUNT 394 x10e3/uL (140-360); RED CELL DISTRIBUTION WIDTH 13.2 % (11.7-14.4)
[2021-08-24 07:04] LABS: ALBUMIN 3.3 g/dL (3.5-5.0); ALBUMIN/GLOBULIN RATIO 0.8 (0.8-2.0); ANION GAP 13.3 mmol/L (8-16); CALCIUM 8.9 mg/dL (8.4-10.2); CREATINE KINASE 199 IU/L (29-168); CREATININE, SERUM 1.02 mg/dL (0.57-1.11); POTASSIUM 4.3 mmol/L (3.5-5.1)
[2021-08-24] MEDS: INSULIN REGULAR, HUMAN 100 UNIT/1 ML SQ SCH ×4 (08:00→21:45)
[2021-08-24] MEDS: HYDROCODONE/APAP 7.5MG-325MG 1 EA TAB PO PRN ×2 (10:57→17:49)
[2021-08-24 13:55] LABS: CREATINE KINASE MB 1.4 ng/mL (0-5.0)
[2021-08-24] MEDS: CEFTRIAXONE 1 GM in SODIUM CHLORIDE 0.9% 50ML 50 ML IV SCH (18:08)
[2021-08-24] MEDS ORDERED: ALBUTEROL SULFATE HFA 8GM INHALATION AEROSOL INH PRN (19:30)
[2021-08-24] MEDS ORDERED: METHOCARBAMOL 500 MG TAB PO PRN (21:00)
[2021-08-24] MEDS ORDERED: METHOCARBAMOL 500 MG TAB PO SCH (21:00)
[2021-08-24] MEDS: ENOXAPARIN SOD INJ 40 MG/0.4 ML SYR SC SCH (21:00)
[2021-08-24] MEDS ORDERED: GABAPENTIN 300 MG CAP PO SCH (21:00)
[2021-08-24] MEDS ORDERED: GABAPENTIN 300 MG CAP PO PRN (21:00)
[2021-08-24] MEDS: TRAZODONE HCL 50 MG TAB PO SCH (21:35)
[2021-08-24] MEDS: NICOTINE 14 MG/EA PATCH TOP SCH (21:35)
[2021-08-25] VITALS: BP 121/66
[2021-08-25] MEDS: BENZONATATE 100 MG CAP PO PRN ×4 (00:34→21:45)
[2021-08-25 04:00] VITALS: BP 125/69
[2021-08-25 06:00] LABS: BASOPHILS # (AUTO) 0.1 (0.0-0.1); BASOPHILS % 0.5 % (0.0-1.0); EOSINOPHILS # (AUTO) 0.1 (0.0-0.4); EOSINOPHILS % 0.6 % (0.0-6.0); HEMATOCRIT 41.6 % (34.2-44.1); HEMOGLOBIN 13.2 g/dL (12.0-16.0); LYMPHOCYTES # (AUTO) 4.7 (1.0-3.2); LYMPHOCYTES % 36.7 % (18.0-39.1); MEAN CORPUSCULAR HEMOGLOBIN 29.3 pg (28-32); MEAN CORPUSCULAR HGB CONC 31.7 g/dL (31-35); MEAN CORPUSCULAR VOLUME 92.4 fL (81-99); MONOCYTES # (AUTO) 0.6 (0.2-0.8); MONOCYTES % 4.7 % (4.4-11.3); NEUTROPHILS # (AUTO) 7.3 (2.1-6.9); PLATELET COUNT 414 x10e3/uL (140-360); RED CELL DISTRIBUTION WIDTH 13.2 % (11.7-14.4)
[2021-08-25 06:25] LABS: ANION GAP 14.4 mmol/L (8-16); CALCIUM 9.2 mg/dL (8.4-10.2); CREATININE, SERUM 0.78 mg/dL (0.57-1.11); POTASSIUM 4.4 mmol/L (3.5-5.1)
[2021-08-25] MEDS: INSULIN REGULAR, HUMAN 100 UNIT/1 ML SQ SCH ×4 (07:30→21:00)
[2021-08-25] MEDS: AMLODIPINE BESYLATE 10 MG TAB PO SCH (08:15)
[2021-08-25] MEDS: CEFTRIAXONE 1 GM in SODIUM CHLORIDE 0.9% 50ML 50 ML IV SCH (08:15)
[2021-08-25] MEDS: METFORMIN HCL 500 MG TAB CR PO SCH ×2 (08:15→18:04)
[2021-08-25] MEDS: HYDROCODONE/APAP 7.5MG-325MG 1 EA TAB PO PRN ×3 (08:15→21:45)
[2021-08-25] MEDS: NICOTINE 14 MG/EA PATCH TOP SCH (08:15)
[2021-08-25] MEDS: ENOXAPARIN SOD INJ 40 MG/0.4 ML SYR SC SCH (08:15)
[2021-08-25 09:00] VITALS: BP 146/79
[2021-08-25] MEDS ORDERED: SITAGLIPTIN 100 MG TAB PO SCH (09:00)
[2021-08-25] MEDS: BUPROPION HCL SR 150 MG TAB PO SCH (11:57)
[2021-08-25] MEDS: APIXAB 2.5 MG TABLET PO SCH ×2 (11:57→18:04)
[2021-08-25 20:00] VITALS: BP 144/80
[2021-08-25 21:00] VITALS: BP 144/80
[2021-08-25] MEDS: TRAZODONE HCL 50 MG TAB PO SCH (21:45)
[2021-08-26 04:00] VITALS: BP 138/79
[2021-08-26] MEDS: INSULIN REGULAR, HUMAN 100 UNIT/1 ML SQ SCH ×2 (07:30→11:30)
[2021-08-26] MEDS: BENZONATATE 100 MG CAP PO PRN (07:58)
[2021-08-26] MEDS: HYDROCODONE/APAP 7.5MG-325MG 1 EA TAB PO PRN (08:04)
[2021-08-26 09:09] VITALS: BP 138/79
[2021-08-26 09:19] VITALS: BP 137/89
[2021-08-26] MEDS: CEFTRIAXONE 1 GM in SODIUM CHLORIDE 0.9% 50ML 50 ML IV SCH (09:33)
[2021-08-26] MEDS: METFORMIN HCL 500 MG TAB CR PO SCH (09:33)
[2021-08-26] MEDS: AMLODIPINE BESYLATE 10 MG TAB PO SCH (09:34)
[2021-08-26] MEDS: NICOTINE 14 MG/EA PATCH TOP SCH (09:34)
[2021-08-26] MEDS: APIXAB 2.5 MG TABLET PO SCH (09:34)
[2021-08-26] MEDS: BUPROPION HCL SR 150 MG TAB PO SCH (09:34)
== END 2021-08-26 12:10 | disposition home or self-care (01) | DRG 177 ==
LOC: ER 18:13 → ERHOLD 21:16 → MED/SURG2 22:45 → IMCU 08-24 16:12
PROVIDERS: ADMIT Internal Medicine; ATTEND Internal Medicine
DX: U07.1 COVID-19 (principal); J12.82 Pneumonia due to coronavirus disease 2019; J18.9 Pneumonia, unspecified organism; J44.1 Chronic obstructive pulmonary disease with (acute) exacerbation; I25.10 Atherosclerotic heart disease of native coronary artery without angina pectoris; E11.22 Type 2 diabetes mellitus with diabetic chronic kidney disease; I12.9 Hypertensive chronic kidney disease with stage 1 through stage 4 chronic kidney disease, or unspecified chronic kidney disease; N18.30 Chronic kidney disease, stage 3 unspecified; Z98.84 Bariatric surgery status; Z95.5 Presence of coronary angioplasty implant and graft; Z72.0 Tobacco use; G89.4 Chronic pain syndrome; R09.02 Hypoxemia; E66.9 Obesity, unspecified; Z68.33 Body mass index [BMI] 33.0-33.9, adult; Z79.84 Long term (current) use of oral hypoglycemic drugs
CPT/HCPCS: 36415; 71045; 80048; 80053; 82550; 82553; 82948; 83605; 84484; 85025; 87040; 93005; 94799; 96372; 99285; J0456; J0696; J1650; J1817; J2930; J7050; U0002

== ENCOUNTER 2021-11-23 14:00 | Emergency (ER) | payer MEDICARE, OTHER ==
[~2021-11-23] VITALS: Ht 167.6 cm; Wt 93.0 kg
[~2021-11-23 14:00] MED LIST changes: +CARVEDILOL6.25 MG PO; +FERROUS SULFAT325 M1 PO; +FLOMAX0.4 MG PO; +HYDROCODON-ACE1 EA12 PO; +LOSARTAN POTASS50 MG PO; +METFORMIN HCL500 M1 PO; +METHOCARBAMOL500 MG PO; +SIMVASTATIN10 MG PO; +TRAZODONE HCL100 MG PO; +VITAMIN PO
[2021-11-23] MEDS ORDERED: HYDROCODONE/APAP 5MG-325MG TAB PO PRN (14:15)
[2021-11-23] MEDS ORDERED: ONDANSETRON HCL INJ 2MG/ML 2ML 2 MG/ML VIAL IV PRN (14:15)
[2021-11-23] MEDS ORDERED: CEFEPIME 1 GM in SODIUM CHLORIDE 0.9% 50ML 50 ML IV SCH (14:30)
[2021-11-23 14:40] LABS: BASOPHILS # (AUTO) 0.1 (0.0-0.1); BASOPHILS % 0.6 % (0.0-1.0); EOSINOPHILS # (AUTO) 0.2 (0.0-0.4); EOSINOPHILS % 1.9 % (0.0-6.0); HEMATOCRIT 33.7 % (34.2-44.1); HEMOGLOBIN 10.6 g/dL (12.0-16.0); LYMPHOCYTES # (AUTO) 3.6 (1.0-3.2); LYMPHOCYTES % 29.3 % (18.0-39.1); MEAN CORPUSCULAR HEMOGLOBIN 28.4 pg (28-32); MEAN CORPUSCULAR HGB CONC 31.5 g/dL (31-35); MEAN CORPUSCULAR VOLUME 90.3 fL (81-99); MONOCYTES # (AUTO) 0.9 (0.2-0.8); NEUTROPHILS # (AUTO) 7.5 (2.1-6.9); NEUTROPHILS % 60.6 % (38.7-80.0); PLATELET COUNT 786 x10e3/uL (140-360); RED BLOOD COUNT 3.73 x10e6/uL (3.6-5.1); RED CELL DISTRIBUTION WIDTH 13.4 % (11.7-14.4)
[2021-11-23 14:58] LABS: ALBUMIN/GLOBULIN RATIO 0.6 (0.8-2.0); ANION GAP 13.8 mmol/L (8-16); CALCIUM 9.2 mg/dL (8.4-10.2); CREATININE, SERUM 0.81 mg/dL (0.57-1.11); POTASSIUM 3.8 mmol/L (3.5-5.1)
[2021-11-23] MEDS ORDERED: Vancomycin IV 1 GM in SODIUM CHLORIDE 0.9% 250ML 250 ML IV SCH (15:00)
[2021-11-23] MEDS ORDERED: SODIUM CHLORIDE 0.9% 1000ML 1,000 ML ONE (15:15)
[2021-11-23] MEDS ORDERED: SODIUM CHLORIDE 0.9% 1000ML 1,000 ML IV ONE (15:15)
== END 2021-11-23 16:47 | disposition home or self-care (01) ==
LOC: ER 14:05
DX: T81.44XA Sepsis following a procedure, initial encounter (principal); Z96.652 Presence of left artificial knee joint; I10 Essential (primary) hypertension; E11.65 Type 2 diabetes mellitus with hyperglycemia; E78.5 Hyperlipidemia, unspecified; J44.9 Chronic obstructive pulmonary disease, unspecified; Z95.5 Presence of coronary angioplasty implant and graft; Z20.822 Contact with and (suspected) exposure to COVID-19
CPT/HCPCS: 36415; 80053; 83605; 85025; 87040; 87071; 87205; 93971; 99284; J0692; J2405; J3370; J7030; J7050; U0002

== ENCOUNTER 2022-10-19 07:46 | Observation (INO) | payer MEDICARE, OTHER ==
[2022-10-16 14:20] LABS: BASOPHILS # (AUTO) 0.1 (0.0-0.1); BASOPHILS % 0.7 % (0.0-1.0); EOSINOPHILS # (AUTO) 0.4 (0.0-0.4); EOSINOPHILS % 3.5 % (0.0-6.0); HEMATOCRIT 37.5 % (34.2-44.1); HEMOGLOBIN 11.7 g/dL (12.0-16.0); LYMPHOCYTES # (AUTO) 4.2 (1.0-3.2); LYMPHOCYTES % 33.4 % (18.0-39.1); MEAN CORPUSCULAR HEMOGLOBIN 26.8 pg (28-32); MEAN CORPUSCULAR HGB CONC 31.2 g/dL (31-35); MEAN CORPUSCULAR VOLUME 85.8 fL (81-99); MONOCYTES # (AUTO) 0.8 (0.2-0.8); MONOCYTES % 5.9 % (4.4-11.3); NEUTROPHILS # (AUTO) 7.1 (2.1-6.9); NEUTROPHILS % 56.2 % (38.7-80.0); PLATELET COUNT 527 x10e3/uL (140-360); RED BLOOD COUNT 4.37 x10e6/uL (3.6-5.1); RED CELL DISTRIBUTION WIDTH 14.1 % (11.7-14.4)
[2022-10-16 14:33] LABS: INR 0.97; PROTHROMBIN TIME 13.1 seconds (11.9-14.5)
[2022-10-16 14:34] LABS: PARTIAL THROMBOPLASTIN TIME 35.7 seconds (23.8-35.5)
[2022-10-16 14:40] LABS: ANION GAP 14.4 mmol/L (8-16); CALCIUM 9.3 mg/dL (8.4-10.2); CREATININE, SERUM 1.21 mg/dL (0.57-1.11); POTASSIUM 4.4 mmol/L (3.5-5.1)
[~2022-10-19] VITALS: Ht 167.6 cm; Wt 94.3 kg
[~2022-10-19 07:46] MED LIST changes: +CENTRUM SILVER1 EAC5 OD
[2022-10-19] MEDS ORDERED: THROMBIN FOR SOLN 5,000 UNIT VIAL ONE (08:06)
[2022-10-19] MEDS ORDERED: CEFAZOLIN SODIUM 2 GM ONE (09:21)
[2022-10-19] MEDS ORDERED: SUGAMMADEX SODIUM 200 MG/2 ML VIAL IV ONE (10:03)
[2022-10-19] MEDS ORDERED: SEVOFLURANE INHAL SOLN 250 ML PEN BTL ONE (10:33)
[2022-10-19] MEDS ORDERED: ROCURONIUM BROMIDE 10 MG/ML 5ML VIAL IV ONE (10:33)
[2022-10-19] MEDS ORDERED: PROPOFOL IV EMULSION 10 MG/ML 20 ML VIAL ONE (10:33)
[2022-10-19] MEDS ORDERED: DEXAMETHASONE SOD PHOS INJ 4 MG/ML SDV ONE (10:33)
[2022-10-19] MEDS ORDERED: ONDANSETRON HCL INJ 2MG/ML 2ML 2 MG/ML VIAL ONE (10:33)
[2022-10-19] MEDS ORDERED: POVIDONE IODINE 0.05% 0.05 % ML PO ONE (10:33)
[2022-10-19] MEDS ORDERED: LIDOCAINE HCL 2% LOCAL INJ 5 ML SDV VIAL INJ ONE (10:33)
[2022-10-19] MEDS ORDERED: ALBUTEROL SULF 0.083% NEB SOLN 3 ML NEB ONE (10:57)
[2022-10-19] MEDS ORDERED: HYDROMORPHONE 1MG/1ML INJ ONE ×3 (10:57→13:56)
[2022-10-19] MEDS ORDERED: HYDROCODON-ACE1 EA12 PO (12:15)
[2022-10-19] MEDS ORDERED: ALBUTEROL SULFATE HFA 8GM INHALATION AEROSOL INH PRN (12:15)
[2022-10-19] MEDS ORDERED: MORPHINE SULFATE 5 MG/ML VIAL IM PRN (12:15)
[2022-10-19] MEDS ORDERED: OXYCODONE/ACETAMINOPHEN 5-325 1 EACH TABLET PO PRN (12:15)
[2022-10-19] MEDS ORDERED: ACETAMINOPHEN 325 MG TAB PO PRN (12:15)
[2022-10-19] MEDS ORDERED: ZOLPIDEM TARTRATE 5 MG TAB PO PRN (12:15)
[2022-10-19] MEDS ORDERED: PROMETHAZINE HCL (IM) 25 MG/ML VIAL IM PRN (12:15)
[2022-10-19] MEDS ORDERED: LACTATED RINGER'S 1,000 ML IV SCH (12:15)
[2022-10-19] MEDS ORDERED: MAGNESIUM/ALUMINUM/SIMETHICONE 30 ML UDC PO PRN (12:15)
[2022-10-19] MEDS ORDERED: CARISOPRODOL 350 MG TAB PO PRN (12:15)
[2022-10-19] MEDS ORDERED: ALBUTEROL/IPRATROPIUM 3 ML NEB ONE (12:49)
[2022-10-19] MEDS ORDERED: FENTANYL CITRATE/PF 100MCG/2 ML INJ ONE (13:19)
[2022-10-19 14:33] VITALS: BP_SYST 129; BP_SYST 153; BP_DIAS 81; BP_DIAS 88
[2022-10-19] MEDS: HYDROMORPHONE 2MG/ML 2 MG/ML ML IV PRN ×2 (15:02→20:58)
[2022-10-19] MEDS: GABAPENTIN 400 MG CAP PO SCH ×2 (15:02→20:56)
[2022-10-19] MEDS: METHOCARBAMOL 500 MG TAB PO SCH ×2 (15:02→20:56)
[2022-10-19] MEDS: ONDANSETRON HCL INJ 2MG/ML 2ML 2 MG/ML VIAL IV PRN ×2 (15:24→20:58)
[2022-10-19 15:45] VITALS: BP 153/88
[2022-10-19] MEDS ORDERED: NICOTINE 14 MG/EA PATCH TOP ONE (16:14)
[2022-10-19] MEDS ORDERED: HYDRALAZINE HCL 25 MG TAB PO SCH (17:00)
[2022-10-19] MEDS ORDERED: METFORMIN HCL 750 MG TAB ER PO SCH (17:00)
[2022-10-19 20:00] VITALS: BP 142/62
[2022-10-19 21:00] VITALS: BP 142/62
[2022-10-19] MEDS ORDERED: SIMVASTATIN 20 MG TAB PO SCH (21:00)
[2022-10-19] MEDS ORDERED: NON-FORMULARY MEDICATION (Simvastatin 10 MG) PO SCH (21:00)
[2022-10-19] MEDS ORDERED: FENOFIBRATE 145 MG TAB PO SCH (21:00)
[2022-10-19] MEDS ORDERED: TRAZODONE HCL 50 MG TAB PO SCH (21:00)
[2022-10-19] MEDS ORDERED: NON-FORMULARY MEDICATION (Fenofibrate 160 MG) PO SCH (21:00)
[2022-10-19 22:07] VITALS: BP 142/62
[2022-10-19 23:30] VITALS: BP 132/64
[2022-10-20] MEDS: HYDROMORPHONE 2MG/ML 2 MG/ML ML IV PRN (01:50)
[2022-10-20] MEDS: ONDANSETRON HCL INJ 2MG/ML 2ML 2 MG/ML VIAL IV PRN (01:50)
[2022-10-20 04:43] VITALS: BP 165/85
[2022-10-20] MEDS ORDERED: GLIMEPIRIDE 2 MG TAB PO SCH (07:30)
[2022-10-20 08:00] VITALS: BP 115/55
[2022-10-20 08:24] VITALS: BP 115/55
[2022-10-20] MEDS ORDERED: IRON OD SCH (09:00)
[2022-10-20] MEDS ORDERED: NON-FORMULARY MEDICATION (Losartan Potassium 50 MG) PO SCH (09:00)
[2022-10-20] MEDS ORDERED: MULTIVITAMINS/MINERALS TAB PO SCH (09:00)
[2022-10-20] MEDS ORDERED: [UNRECOGNIZED DRUG - OTHER] OD SCH (09:00)
[2022-10-20] MEDS ORDERED: MULTIVIT MIN OD SCH (09:00)
[2022-10-20] MEDS ORDERED: CARVEDILOL 3.125 MG TAB PO SCH (09:00)
[2022-10-20] MEDS ORDERED: SITAGLIPTIN 100 MG TAB PO SCH (09:00)
[2022-10-20] MEDS ORDERED: FOLIC OD SCH (09:00)
[2022-10-20] MEDS ORDERED: LOSARTAN POTASSIUM 25 MG TAB PO SCH (09:00)
[2022-10-20] MEDS ORDERED: LUTEIN T OD SCH (09:00)
[2022-10-20] MEDS ORDERED: NON-FORMULARY MEDICATION (Carvedilol 6.25 MG) PO SCH (09:00)
[2022-10-20] MEDS ORDERED: AMLODIPINE BESYLATE 10 MG TAB PO SCH (09:00)
== END 2022-10-20 09:57 | disposition home or self-care (01) ==
LOC: OR 07:46 → PACU V 12:11 → MED/SURG3 14:30
PROVIDERS: ADMIT Neurological Surgery; ATTEND Neurological Surgery
DX: M48.062 Spinal stenosis, lumbar region with neurogenic claudication (principal); M71.38 Other bursal cyst, other site; M43.16 Spondylolisthesis, lumbar region; E11.22 Type 2 diabetes mellitus with diabetic chronic kidney disease; I12.9 Hypertensive chronic kidney disease with stage 1 through stage 4 chronic kidney disease, or unspecified chronic kidney disease; N18.9 Chronic kidney disease, unspecified; J44.1 Chronic obstructive pulmonary disease with (acute) exacerbation; E78.5 Hyperlipidemia, unspecified; Z71.82 Exercise counseling; Z71.3 Dietary counseling and surveillance; F17.210 Nicotine dependence, cigarettes, uncomplicated; Z01.810 Encounter for preprocedural cardiovascular examination; Z01.812 Encounter for preprocedural laboratory examination; Z01.818 Encounter for other preprocedural examination; Z20.822 Contact with and (suspected) exposure to COVID-19; Z79.84 Long term (current) use of oral hypoglycemic drugs; Z79.899 Other long term (current) drug therapy; Z68.32 Body mass index [BMI] 32.0-32.9, adult; Z96.651 Presence of right artificial knee joint; Z87.01 Personal history of pneumonia (recurrent)
CPT/HCPCS: 0223U; 36415 ×3; 63047; 71046; 72020; 80048; 82948 ×2; 85025; 85610; 85730; 86850; 86900; 88304; 88311; 88312; 93005; 94640; 94799 ×2; G0378 ×2; J0690 ×2; J1100; J1170 ×3; J2001; J2405 ×2; J2550; J2704; J3010; J7121